=== PATIENT | male | born 1965 | race Caucasian/White ===

== ENCOUNTER 2020-06-19 12:47 | Inpatient (IN) ==
[2020-06-19] MEDS ORDERED: Ketorolac 15 MG/ML VIAL IVP ONE (14:03)
[2020-06-19] MEDS ORDERED: Piperacillin/Tazobactam 3.375 GM in 0.9 % Sodium Chloride Mini Bag 100 ML IVPB STA (14:13)
[2020-06-19 14:36] LABS: Basophils % 0.2 %; Hematocrit 41.6 % (37.5-50.1); Immature Granulocytes % 0.4 % (0-4); Lymphocytes # 0.8 K/mcL (0.6-4.6); Lymphocytes % 6.2 %; Mean Corpuscular HGB Conc 33.7 g/dL (31.6-35.5); Mean Corpuscular Volume 89.1 fL (83.0-100.0); Mean Platelet Volume 10.6 fL (9.4-12.4); Monocytes % 7.6 %; Neutrophils # 11.5 K/mcL (1.6-8.9); Platelet Count 280 K/mcL (140-400); Red Blood Count 4.67 M/mcL (4.19-5.50); Red Cell Distribution Width 12.1 % (11.5-14.5); Segmented Neutrophils % 85.6 %; White Blood Count 13.5 K/mcL (4.3-11.1)
[2020-06-19 15:02] LABS: Alanine Aminotransferase 17 Units/L (7-52); Albumin/Globulin Ratio 1.2 (1.1-2.2); Alkaline Phosphatase 160 Units/L (34-104); Aspartate Amino Transferase 13 Units/L (13-39); BUN/Creatinine Ratio 15 (6-26); Bilirubin,Total 0.5 mg/dL (0.3-1.0); Blood Urea Nitrogen 19 mg/dL (6-20); C-Reactive Protein 78 mg/L (Less than 10); Calcium 9.3 mg/dL (8.6-10.3); Carbon Dioxide 28 mEq/L (23-29); Chloride 89 mEq/L (98-107); Globulin 3.3 g/dL (2.4-3.5); Glucose 719 mg/dL (70-105); Osmolality,Calculated 299 (280-300); Potassium 4.3 mEq/L (3.5-5.1); Sodium 126 mEq/L (136-145); Total Protein 7.3 g/dL (6.4-8.9); eGFR For African Americans > 60 (> 60); eGFR For Non-African Americans 57 (> 60)
[2020-06-19] MEDS ORDERED: Isovue-370 500 ML BOTTLE IVP ONE (15:14)
[2020-06-19] MEDS ORDERED: D5% in Water 1,000 ML IVC PRN (15:18)
[2020-06-19] MEDS ORDERED: *HR* Dextrose 50 % in Water (Vial) 50 ML VIAL IVP PRN (15:18)
[2020-06-19] MEDS ORDERED: Dextrose Gel 15 GM/37.5 ML TUBE PO PRN ×2 (15:18)
[2020-06-19] MEDS ORDERED: Insulin Human Regular 10 UNIT in 0.9 % Sodium Chloride 10 ML IV ONE (15:27)
[2020-06-19 16:18] LABS: INR 0.9; Magnesium 1.8 mg/dL (1.6-2.6); Phosphorous 3.8 mg/dL (2.7-4.5); Prothrombin Time 10.7 Seconds (9.4-12.1)
[2020-06-19] MEDS ORDERED: Ondansetron 4 MG/2 ML VIAL IVP PRN (17:07)
[2020-06-19] MEDS ORDERED: *HR* HYDROcodone/Acet 5/325 mg TABLET PO PRN (17:07)
[2020-06-19] MEDS ORDERED: Acetaminophen 325 MG TABLET PO PRN (17:07)
[2020-06-19] MEDS ORDERED: Naloxone 0.4 MG/ML INJ IVP PRN (17:07)
[2020-06-19 17:42] LABS: Estimated Average Glucose 473 mg/dl; Hemoglobin A1C 18.1 %
[2020-06-19 17:45] LABS: Bilirubin,Urine Negative (Negative); Blood,Urine Negative (Negative); Clarity,Urine Clear (Clear); Color,Urine Colorless (Yellow); Glucose,Urine (UA) >=1000 mg/dL (Normal); Ketones,Urine Negative (Negative); Leukocyte Esterase,Urine Negative (Negative); Nitrite,Urine Negative (Negative); Protein,Urine Negative (Neg-Trace); RBC,Urine 0-3 per hpf (0-3); Specific Gravity,Urine > 1.030 (1.010-1.025); Squamous Epithelial Cell,Urine Few per hpf (None-Few); Urobilinogen,Urine Normal (Normal); WBC,Urine 0-3 per hpf (0-3)
[2020-06-19] MEDS: *HR* Heparin 5,000 UNIT/ML VIAL SQ SCH (18:07)
[2020-06-19] MEDS: Insulin LISPRO 300 UNITS/3 ML VIAL SUBQ SCH (18:13)
[2020-06-19] MEDS: Piperacillin/Tazobactam 3.375 GM in 0.9 % Sodium Chloride Mini Bag 100 ML IVPB SCH (19:39)
[2020-06-20] MEDS: *HR* OxyCODONE Immed Rel 5 MG TABLET PO PRN ×4 (00:07→19:05)
[2020-06-20] MEDS: Insulin LISPRO 300 UNITS/3 ML VIAL SUBQ SCH ×4 (00:07→17:55)
[2020-06-20] MEDS: Piperacillin/Tazobactam 3.375 GM in 0.9 % Sodium Chloride Mini Bag 100 ML IVPB SCH ×3 (03:57→19:09)
[2020-06-20] MEDS: *HR* Heparin 5,000 UNIT/ML VIAL SQ SCH ×2 (05:40→17:51)
[2020-06-20 06:19] LABS: Basophils % 0.2 %; Hematocrit 37.1 % (37.5-50.1); Immature Granulocytes % 0.6 % (0-4); Lymphocytes # 1.5 K/mcL (0.6-4.6); Lymphocytes % 9.6 %; Mean Corpuscular HGB Conc 33.2 g/dL (31.6-35.5); Mean Corpuscular Hemoglobin 29.1 pg (28.0-33.3); Mean Corpuscular Volume 87.7 fL (83.0-100.0); Mean Platelet Volume 10.3 fL (9.4-12.4); Monocytes # 1.6 K/mcL (0.0-1.3); Monocytes % 10.5 %; Platelet Count 262 K/mcL (140-400); Red Blood Count 4.23 M/mcL (4.19-5.50); Red Cell Distribution Width 11.9 % (11.5-14.5); Segmented Neutrophils % 79.1 %; White Blood Count 15.2 K/mcL (4.3-11.1)
[2020-06-20 06:24] LABS: Hemoglobin 12.3 g/dL (12.9-16.9)
[2020-06-20 07:00] LABS: Blood Urea Nitrogen 22 mg/dL (6-20); Carbon Dioxide 29 mEq/L (23-29); Chloride 100 mEq/L (98-107); Potassium 4.1 mEq/L (3.5-5.1); Sodium 135 mEq/L (136-145)
[2020-06-20 07:01] LABS: Alanine Aminotransferase 23 Units/L (7-52); Albumin 3.4 g/dL (3.5-5.7); Albumin/Globulin Ratio 1.3 (1.1-2.2); Alkaline Phosphatase 140 Units/L (34-104); Aspartate Amino Transferase 30 Units/L (13-39); BUN/Creatinine Ratio 20 (6-26); Bilirubin,Total 0.6 mg/dL (0.3-1.0); Calcium 8.9 mg/dL (8.6-10.3); Globulin 2.7 g/dL (2.4-3.5); Glucose 111 mg/dL (70-105); Osmolality,Calculated 284 (280-300); Total Protein 6.1 g/dL (6.4-8.9); eGFR For African Americans > 60 (> 60); eGFR For Non-African Americans > 60 (> 60)
[2020-06-20] MEDS ORDERED: lisinopriL 5 MG TABLET PO SCH (09:00)
[2020-06-20] MEDS ORDERED: Aspirin 81 MG TAB.CHEW PO SCH (09:00)
[2020-06-20] MEDS: carvediloL 6.25 MG TABLET PO SCH ×2 (09:06→17:53)
[2020-06-20] MEDS ORDERED: Lidocaine 1% 0 ML ONE (16:38)
[2020-06-20] MEDS ORDERED: *HR* FentaNYL (PF) 100 MCG/2 ML VIAL ONE (16:56)
[2020-06-20] MEDS ORDERED: Dexamethasone 4 MG/ML VIAL ONE (16:58)
[2020-06-20] MEDS ORDERED: Lidocaine -MPF 2% 2 ML VIAL ONE (16:58)
[2020-06-20] MEDS ORDERED: Ondansetron 4 MG/2 ML VIAL ONE (16:58)
[2020-06-20] MEDS ORDERED: *HR* Propofol 200 MG/20 ML VIAL IVP ONE (16:58)
[2020-06-20] MEDS ORDERED: *HR* Midazolam HCl 2 MG/2 ML VIAL ONE (17:02)
[2020-06-20] MEDS ORDERED: Dextrose Gel 15 GM/37.5 ML TUBE PO PRN ×2 (18:17)
[2020-06-20] MEDS ORDERED: *HR* Dextrose 50 % in Water (Vial) 50 ML VIAL IVP PRN (18:17)
[2020-06-20] MEDS ORDERED: Ondansetron 4 MG/2 ML VIAL IVP PRN (18:17)
[2020-06-20] MEDS ORDERED: Acetaminophen 325 MG TABLET PO PRN (18:17)
[2020-06-20] MEDS ORDERED: D5% in Water 1,000 ML IVC PRN (18:17)
[2020-06-20] MEDS ORDERED: Naloxone 0.4 MG/ML INJ IVP PRN (18:17)
[2020-06-21] MEDS: Insulin LISPRO 300 UNITS/3 ML VIAL SUBQ SCH ×4 (00:24→17:11)
[2020-06-21] MEDS ORDERED: Insulin Human Regular 10 UNIT in 0.9 % Sodium Chloride 10 ML IV ONE (02:09)
[2020-06-21] MEDS: Piperacillin/Tazobactam 3.375 GM in 0.9 % Sodium Chloride Mini Bag 100 ML IVPB SCH ×3 (03:31→20:08)
[2020-06-21] MEDS ORDERED: Insulin DETEMIR 100 UNIT/ML X5UNITS SUBQ ONE (03:39)
[2020-06-21 03:48] LABS: Basophils % 0.1 %; Hematocrit 32.2 % (37.5-50.1); Immature Granulocytes % 0.9 % (0-4); Lymphocytes % 6.3 %; Mean Corpuscular HGB Conc 33.2 g/dL (31.6-35.5); Mean Corpuscular Volume 90.2 fL (83.0-100.0); Mean Platelet Volume 10.7 fL (9.4-12.4); Monocytes # 1.5 K/mcL (0.0-1.3); Monocytes % 9.4 %; Neutrophils # 13.2 K/mcL (1.6-8.9); Platelet Count 278 K/mcL (140-400); Red Blood Count 3.57 M/mcL (4.19-5.50); Red Cell Distribution Width 11.9 % (11.5-14.5); Segmented Neutrophils % 83.3 %; White Blood Count 15.9 K/mcL (4.3-11.1)
[2020-06-21 03:53] LABS: Hemoglobin 10.7 g/dL (12.9-16.9)
[2020-06-21 04:09] LABS: BUN/Creatinine Ratio 21 (6-26); Blood Urea Nitrogen 28 mg/dL (6-20); C-Reactive Protein 112 mg/L (Less than 10); Calcium 8.4 mg/dL (8.6-10.3); Carbon Dioxide 26 mEq/L (23-29); Chloride 99 mEq/L (98-107); Glucose 458 mg/dL (70-105); Osmolality,Calculated 299 (280-300); Phosphorous 3.9 mg/dL (2.7-4.5); Sodium 132 mEq/L (136-145); eGFR For African Americans > 60 (> 60); eGFR For Non-African Americans 56 (> 60)
[2020-06-21] MEDS: *HR* Heparin 5,000 UNIT/ML VIAL SQ SCH ×2 (06:05→17:11)
[2020-06-21] MEDS: carvediloL 6.25 MG TABLET PO SCH ×2 (08:17→17:10)
[2020-06-21] MEDS: lisinopriL 5 MG TABLET PO SCH (08:17)
[2020-06-21] MEDS: Aspirin 81 MG TAB.CHEW PO SCH (08:18)
[2020-06-21] MEDS: Insulin DETEMIR 100 UNIT/ML X5UNITS SUBQ SCH (20:02)
[2020-06-21] MEDS: *HR* OxyCODONE Immed Rel 5 MG TABLET PO PRN (23:18)
[2020-06-22] MEDS: *HR* HYDROcodone/Acet 5/325 mg TABLET PO PRN ×3 (01:47→22:45)
[2020-06-22] MEDS: *HR* Heparin 5,000 UNIT/ML VIAL SQ SCH ×2 (04:01→16:54)
[2020-06-22] MEDS: Piperacillin/Tazobactam 3.375 GM in 0.9 % Sodium Chloride Mini Bag 100 ML IVPB SCH ×2 (04:03→12:15)
[2020-06-22 06:44] LABS: Hematocrit 37.3 % (37.5-50.1); Hemoglobin 12.2 g/dL (12.9-16.9); Mean Corpuscular HGB Conc 32.7 g/dL (31.6-35.5); Mean Corpuscular Hemoglobin 29.3 pg (28.0-33.3); Mean Corpuscular Volume 89.7 fL (83.0-100.0); Mean Platelet Volume 10.7 fL (9.4-12.4); Platelet Count 315 K/mcL (140-400); Red Blood Count 4.16 M/mcL (4.19-5.50); Red Cell Distribution Width 11.9 % (11.5-14.5); White Blood Count 13.9 K/mcL (4.3-11.1)
[2020-06-22] MEDS: Insulin LISPRO 300 UNITS/3 ML VIAL SUBQ SCH ×3 (07:56→16:53)
[2020-06-22] MEDS: lisinopriL 5 MG TABLET PO SCH (08:00)
[2020-06-22] MEDS: carvediloL 6.25 MG TABLET PO SCH ×2 (08:00→16:52)
[2020-06-22] MEDS: Aspirin 81 MG TAB.CHEW PO SCH (08:00)
[2020-06-22] MEDS: Furosemide 40 MG TABLET PO SCH (08:00)
[2020-06-22 09:58] LABS: BUN/Creatinine Ratio 24 (6-26); Blood Urea Nitrogen 22 mg/dL (6-20); Calcium 8.5 mg/dL (8.6-10.3); Carbon Dioxide 25 mEq/L (23-29); Chloride 103 mEq/L (98-107); Glucose 141 mg/dL (70-105); Osmolality,Calculated 286 (280-300); Potassium 4.4 mEq/L (3.5-5.1); Sodium 135 mEq/L (136-145); eGFR For African Americans > 60 (> 60); eGFR For Non-African Americans > 60 (> 60)
[2020-06-22] MEDS: *HR* OxyCODONE Immed Rel 5 MG TABLET PO PRN ×2 (13:08→20:25)
[2020-06-22] MEDS: Insulin DETEMIR 100 UNIT/ML X5UNITS SUBQ SCH (20:24)
[2020-06-23] MEDS: *HR* Heparin 5,000 UNIT/ML VIAL SQ SCH ×2 (05:20→16:41)
[2020-06-23 06:39] LABS: Hematocrit 43.8 % (37.5-50.1); Mean Corpuscular HGB Conc 32.6 g/dL (31.6-35.5); Mean Corpuscular Hemoglobin 29.8 pg (28.0-33.3); Mean Corpuscular Volume 91.3 fL (83.0-100.0); Mean Platelet Volume 10.1 fL (9.4-12.4); Platelet Count 355 K/mcL (140-400); Red Cell Distribution Width 11.9 % (11.5-14.5); White Blood Count 11.6 K/mcL (4.3-11.1)
[2020-06-23 06:40] LABS: Hemoglobin 14.3 g/dL (12.9-16.9)
[2020-06-23 07:00] LABS: BUN/Creatinine Ratio 20 (6-26); Blood Urea Nitrogen 21 mg/dL (6-20); Calcium 9.2 mg/dL (8.6-10.3); Carbon Dioxide 26 mEq/L (23-29); Chloride 101 mEq/L (98-107); Glucose 150 mg/dL (70-105); Osmolality,Calculated 288 (280-300); Potassium 3.9 mEq/L (3.5-5.1); Sodium 136 mEq/L (136-145); eGFR For African Americans > 60 (> 60); eGFR For Non-African Americans > 60 (> 60)
[2020-06-23] MEDS: Insulin LISPRO 300 UNITS/3 ML VIAL SUBQ SCH ×3 (07:24→16:36)
[2020-06-23] MEDS: Aspirin 81 MG TAB.CHEW PO SCH (08:42)
[2020-06-23] MEDS: lisinopriL 5 MG TABLET PO SCH (08:43)
[2020-06-23] MEDS: Furosemide 40 MG TABLET PO SCH (08:43)
[2020-06-23] MEDS: *HR* HYDROcodone/Acet 5/325 mg TABLET PO PRN (08:45)
[2020-06-23] MEDS: carvediloL 6.25 MG TABLET PO SCH ×2 (08:45→16:37)
[2020-06-23] MEDS: *HR* OxyCODONE Immed Rel 5 MG TABLET PO PRN (20:15)
[2020-06-23] MEDS: Insulin DETEMIR 100 UNIT/ML X5UNITS SUBQ SCH (20:16)
[2020-06-24] MEDS: *HR* OxyCODONE Immed Rel 5 MG TABLET PO PRN (02:03)
[2020-06-24] MEDS: *HR* Heparin 5,000 UNIT/ML VIAL SQ SCH (05:27)
[2020-06-24] MEDS: Aspirin 81 MG TAB.CHEW PO SCH (07:53)
[2020-06-24] MEDS: Furosemide 40 MG TABLET PO SCH (07:53)
[2020-06-24] MEDS: lisinopriL 5 MG TABLET PO SCH (07:53)
[2020-06-24] MEDS: Insulin LISPRO 300 UNITS/3 ML VIAL SUBQ SCH ×2 (07:53→11:22)
[2020-06-24] MEDS: carvediloL 6.25 MG TABLET PO SCH (07:53)
[2020-06-24] MEDS: *HR* HYDROcodone/Acet 5/325 mg TABLET PO PRN (07:59)
[2020-06-24 11:00] VITALS: BP 130/66
== END 2020-06-24 14:41 | disposition home or self-care (01) | DRG 623 ==
LOC: EMEROOARM 12:47 → 3BNU 12:47 → SUATTDRO 16:48 → 3BNU 18:00 → SUATTDRO 06-20 08:14
PROVIDERS: ADMIT Internal Medicine; ATTEND Internal Medicine

== ENCOUNTER 2020-08-25 12:23 | Inpatient (IN) ==
[2020-08-25] MEDS ORDERED: *HR* FentaNYL (PF) 100 MCG/2 ML VIAL IVP ONE (14:39)
[2020-08-25 15:11] LABS: Basophils % 0.3 %; Eosinophils % 0.1 %; Hematocrit 40.6 % (37.5-50.1); Hemoglobin 12.5 g/dL (12.9-16.9); Immature Granulocytes % 0.3 % (0-4); Lymphocytes # 1.9 K/mcL (0.6-4.6); Lymphocytes % 15.3 %; Mean Corpuscular HGB Conc 30.8 g/dL (31.6-35.5); Mean Corpuscular Hemoglobin 28.2 pg (28.0-33.3); Mean Corpuscular Volume 91.6 fL (83.0-100.0); Mean Platelet Volume 10.1 fL (9.4-12.4); Monocytes # 0.9 K/mcL (0.0-1.3); Monocytes % 7.7 %; Neutrophils # 9.3 K/mcL (1.6-8.9); Platelet Count 308 K/mcL (140-400); Red Blood Count 4.43 M/mcL (4.19-5.50); Segmented Neutrophils % 76.3 %; White Blood Count 12.1 K/mcL (4.3-11.1)
[2020-08-25 15:31] LABS: Alanine Aminotransferase 31 Units/L (7-52); Albumin/Globulin Ratio 1.2 (1.1-2.2); Alkaline Phosphatase 190 Units/L (34-104); Aspartate Amino Transferase 16 Units/L (13-39); BUN/Creatinine Ratio 20 (6-26); Bilirubin,Total 0.4 mg/dL (0.3-1.0); Blood Urea Nitrogen 19 mg/dL (6-20); C-Reactive Protein 29 mg/L (Less than 10); Calcium 9.2 mg/dL (8.6-10.3); Carbon Dioxide 31 mEq/L (23-29); Chloride 98 mEq/L (98-107); Globulin 3.3 g/dL (2.4-3.5); Glucose 243 mg/dL (70-105); Osmolality,Calculated 296 (280-300); Potassium 3.6 mEq/L (3.5-5.1); Sodium 138 mEq/L (136-145); Total Protein 7.3 g/dL (6.4-8.9); eGFR For African Americans > 60 (> 60); eGFR For Non-African Americans > 60 (> 60)
[2020-08-25] MEDS ORDERED: Piperacillin/Tazobactam 3.375 GM in Water for inj. (sterile) 20 ML IVP ONE (15:54)
[2020-08-25] MEDS ORDERED: 0.9 % Sodium Chloride 1,000 ML IVC ONE (16:06)
[2020-08-25] MEDS ORDERED: D5% in Water 1,000 ML IVC PRN (16:16)
[2020-08-25] MEDS ORDERED: Dextrose Gel 15 GM/37.5 ML TUBE PO PRN ×2 (16:16)
[2020-08-25] MEDS ORDERED: Ondansetron 4 MG/2 ML VIAL IVP PRN (16:22)
[2020-08-25] MEDS ORDERED: Naloxone 0.4 MG/ML INJ IVP PRN (16:22)
[2020-08-25] MEDS: Insulin LISPRO 300 UNITS/3 ML VIAL SUBQ SCH ×2 (17:54→20:28)
[2020-08-25] MEDS: Insulin DETEMIR 100 UNIT/ML X5UNITS SUBQ SCH (20:28)
[2020-08-25] MEDS: Piperacillin/Tazobactam 3.375 GM in 0.9 % Sodium Chloride Mini Bag 100 ML IVPB SCH (23:50)
[2020-08-26 01:32] LABS: Basophils % 0.2 %; Mean Corpuscular HGB Conc 31.4 g/dL (31.6-35.5); Mean Platelet Volume 10.3 fL (9.4-12.4); Monocytes % 8.6 %
[2020-08-26 01:38] LABS: Eosinophils % 0.2 %; Hematocrit 33.8 % (37.5-50.1); Hemoglobin 10.6 g/dL (12.9-16.9); Immature Granulocytes % 0.2 % (0-4); Lymphocytes % 20.5 %; Mean Corpuscular Hemoglobin 28.6 pg (28.0-33.3); Mean Corpuscular Volume 91.1 fL (83.0-100.0); Monocytes # 0.8 K/mcL (0.0-1.3); Neutrophils # 6.8 K/mcL (1.6-8.9); Platelet Count 261 K/mcL (140-400); Red Blood Count 3.71 M/mcL (4.19-5.50); Segmented Neutrophils % 70.3 %; White Blood Count 9.7 K/mcL (4.3-11.1)
[2020-08-26 01:54] LABS: BUN/Creatinine Ratio 22 (6-26); Blood Urea Nitrogen 21 mg/dL (6-20); Calcium 8.1 mg/dL (8.6-10.3); Carbon Dioxide 29 mEq/L (23-29); Chloride 104 mEq/L (98-107); Glucose 173 mg/dL (70-105); Osmolality,Calculated 293 (280-300); Potassium 3.4 mEq/L (3.5-5.1); Sodium 138 mEq/L (136-145); eGFR For African Americans > 60 (> 60); eGFR For Non-African Americans > 60 (> 60)
[2020-08-26] MEDS: *HR* Dextrose 50 % in Water (Vial) 50 ML VIAL IVP PRN ×3 (06:03→12:47)
[2020-08-26] MEDS: Insulin LISPRO 300 UNITS/3 ML VIAL SUBQ SCH ×4 (08:04→19:54)
[2020-08-26] MEDS: Piperacillin/Tazobactam 3.375 GM in 0.9 % Sodium Chloride Mini Bag 100 ML IVPB SCH ×3 (08:25→23:53)
[2020-08-26] MEDS: Aspirin Enteric Coated 81 MG Tablet PO SCH (08:25)
[2020-08-26] MEDS: Insulin DETEMIR 100 UNIT/ML X5UNITS SUBQ SCH (19:54)
[2020-08-26] MEDS ORDERED: Piperacillin/Tazobactam 3.375 GM VIAL ONE (23:03)
[2020-08-27 05:20] LABS: Basophils # 0.1 K/mcL (0.0-0.2); Basophils % 0.5 %; Eosinophils % 0.1 %; Hematocrit 35.7 % (37.5-50.1); Hemoglobin 11.4 g/dL (12.9-16.9); Immature Granulocytes % 0.5 % (0-4); Lymphocytes # 1.5 K/mcL (0.6-4.6); Lymphocytes % 14.5 %; Mean Corpuscular HGB Conc 31.9 g/dL (31.6-35.5); Mean Corpuscular Hemoglobin 28.4 pg (28.0-33.3); Mean Corpuscular Volume 88.8 fL (83.0-100.0); Mean Platelet Volume 9.8 fL (9.4-12.4); Monocytes # 0.8 K/mcL (0.0-1.3); Monocytes % 7.7 %; Neutrophils # 7.9 K/mcL (1.6-8.9); Platelet Count 306 K/mcL (140-400); Red Blood Count 4.02 M/mcL (4.19-5.50); Red Cell Distribution Width 12.9 % (11.5-14.5); Segmented Neutrophils % 76.7 %; White Blood Count 10.3 K/mcL (4.3-11.1)
[2020-08-27 05:38] LABS: BUN/Creatinine Ratio 29 (6-26); Blood Urea Nitrogen 24 mg/dL (6-20); Calcium 8.7 mg/dL (8.6-10.3); Carbon Dioxide 27 mEq/L (23-29); Chloride 105 mEq/L (98-107); Glucose 257 mg/dL (70-105); Osmolality,Calculated 299 (280-300); Potassium 3.8 mEq/L (3.5-5.1); Sodium 138 mEq/L (136-145); Vancomycin,Trough 11 mcg/mL (5-10); eGFR For African Americans > 60 (> 60); eGFR For Non-African Americans > 60 (> 60)
[2020-08-27 08:22] LABS: Estimated Average Glucose 266 mg/dl; Hemoglobin A1C 10.9 %
[2020-08-27] MEDS: carvediloL 25 MG TABLET PO SCH ×2 (08:25→20:06)
[2020-08-27] MEDS: Aspirin Enteric Coated 81 MG Tablet PO SCH (08:25)
[2020-08-27] MEDS: Furosemide 40 MG TABLET PO SCH (08:25)
[2020-08-27] MEDS: lisinopriL 5 MG TABLET PO SCH (08:25)
[2020-08-27] MEDS: Vancomycin 1,500 MG/265 ML IV.SOLN IVPB SCH ×2 (08:25→17:07)
[2020-08-27] MEDS: Piperacillin/Tazobactam 3.375 GM in 0.9 % Sodium Chloride Mini Bag 100 ML IVPB SCH ×3 (08:26→23:46)
[2020-08-27] MEDS: Insulin LISPRO 300 UNITS/3 ML VIAL SUBQ SCH ×4 (08:28→20:10)
[2020-08-27] MEDS ORDERED: Furosemide 40 MG/4 ML VIAL IVP ONE (16:14)
[2020-08-27] MEDS: Insulin DETEMIR 100 UNIT/ML X5UNITS SUBQ SCH (20:07)
[2020-08-28 01:51] LABS: Hematocrit 34.3 % (37.5-50.1); Hemoglobin 10.8 g/dL (12.9-16.9); Mean Corpuscular HGB Conc 31.5 g/dL (31.6-35.5); Mean Corpuscular Hemoglobin 28.3 pg (28.0-33.3); Mean Platelet Volume 10.1 fL (9.4-12.4); Platelet Count 297 K/mcL (140-400); Red Blood Count 3.81 M/mcL (4.19-5.50); Red Cell Distribution Width 12.9 % (11.5-14.5); White Blood Count 9.1 K/mcL (4.3-11.1)
[2020-08-28 02:10] LABS: BUN/Creatinine Ratio 25 (6-26); Blood Urea Nitrogen 26 mg/dL (6-20); Calcium 8.4 mg/dL (8.6-10.3); Carbon Dioxide 27 mEq/L (23-29); Chloride 104 mEq/L (98-107); Glucose 241 mg/dL (70-105); Osmolality,Calculated 301 (280-300); Potassium 3.7 mEq/L (3.5-5.1); Sodium 139 mEq/L (136-145); eGFR For African Americans > 60 (> 60); eGFR For Non-African Americans > 60 (> 60)
[2020-08-28 02:13] LABS: Adenovirus Not Detected (Not Detect); Bordetella Pertussis Not Detected (Not Detect); Chlamydophila pneumoniae Not Detected (Not Detect); Coronavirus 229E Not Detected (Not Detect); Coronavirus HKU1 Not Detected (Not Detect); Coronavirus NL63 Not Detected (Not Detect); Coronavirus OC43 Not Detected (Not Detect); Human Metapneumovirus Not Detected (Not Detect); Human Rhinovirus/Enterovirus Not Detected (Not Detect); Influenza A Subtype 2009 H1 Not Detected (Not Detect); Influenza B Not Detected (Not Detect); Mycoplasma pneumoniae Not Detected (Not Detect); Parainfluenza Virus 1 Not Detected (Not Detect); Parainfluenza Virus 2 Not Detected (Not Detect); Parainfluenza Virus 3 Not Detected (Not Detect); Parainfluenza Virus 4 Not Detected (Not Detect); Respiratory Syncytial Virus Not Detected (Not Detect); SARS-CoV-2 Not Detected (Not Detect)
[2020-08-28] MEDS: Vancomycin 1,500 MG/265 ML IV.SOLN IVPB SCH (05:22)
[2020-08-28] MEDS: Insulin LISPRO 300 UNITS/3 ML VIAL SUBQ SCH ×4 (08:57→20:43)
[2020-08-28] MEDS: Piperacillin/Tazobactam 3.375 GM in 0.9 % Sodium Chloride Mini Bag 100 ML IVPB SCH ×2 (08:57→18:26)
[2020-08-28] MEDS: Aspirin Enteric Coated 81 MG Tablet PO SCH (08:58)
[2020-08-28] MEDS: lisinopriL 5 MG TABLET PO SCH (08:58)
[2020-08-28] MEDS: carvediloL 25 MG TABLET PO SCH ×2 (08:58→20:41)
[2020-08-28] MEDS: Furosemide 40 MG TABLET PO SCH (08:58)
[2020-08-28] MEDS ORDERED: *HR* OxyCODONE/APAP 7.5/325 TABLET PO PRN (11:13)
[2020-08-28] MEDS ORDERED: Lidocaine -MPF 2% 2 ML VIAL ONE (12:48)
[2020-08-28] MEDS ORDERED: *HR* FentaNYL (PF) 100 MCG/2 ML VIAL ONE (13:00)
[2020-08-28] MEDS ORDERED: *HR* HYDROmorphone (PF) 1 MG/ML SYRINGE ONE (14:17)
[2020-08-28] MEDS: *HR* HYDROmorphone PF 0.5 MG/0.5 ML SYRINGE IVP PRN ×2 (14:20→14:25)
[2020-08-28] MEDS ORDERED: *HR* HYDROmorphone PF 0.5 MG/0.5 ML SYRINGE IVP PRN (15:01)
[2020-08-28] MEDS ORDERED: *HR* Dextrose 50 % in Water (Vial) 50 ML VIAL IVP PRN (15:01)
[2020-08-28] MEDS ORDERED: Naloxone 0.4 MG/ML INJ IVP PRN (15:01)
[2020-08-28] MEDS ORDERED: Dextrose Gel 15 GM/37.5 ML TUBE PO PRN ×2 (15:01)
[2020-08-28] MEDS ORDERED: Ondansetron 4 MG/2 ML VIAL IVP PRN (15:01)
[2020-08-28] MEDS ORDERED: D5% in Water 1,000 ML IVC PRN (15:01)
[2020-08-28] MEDS ORDERED: Vancomycin 1,500 MG/265 ML IV.SOLN IVPB SCH (18:00)
[2020-08-28] MEDS: *HR* OxyCODONE/APAP 7.5/325 TABLET PO PRN (18:32)
[2020-08-28] MEDS: Vancomycin 1,250 MG/262.5 ML IV.SOLN IVPB SCH (20:41)
[2020-08-28] MEDS ORDERED: Insulin DETEMIR 100 UNIT/ML X5UNITS SUBQ SCH ×2 (21:00)
[2020-08-28] MEDS ORDERED: Morphine Sulfate 2 MG/ML SYRINGE IVP ONE (21:31)
[2020-08-29] MEDS: Piperacillin/Tazobactam 3.375 GM in 0.9 % Sodium Chloride Mini Bag 100 ML IVPB SCH ×3 (00:48→15:03)
[2020-08-29] MEDS: *HR* OxyCODONE/APAP 7.5/325 TABLET PO PRN ×2 (00:48→10:29)
[2020-08-29 05:51] LABS: Hematocrit 40.2 % (37.5-50.1); Hemoglobin 12.3 g/dL (12.9-16.9); Mean Corpuscular HGB Conc 30.6 g/dL (31.6-35.5); Mean Corpuscular Volume 91.6 fL (83.0-100.0); Mean Platelet Volume 9.7 fL (9.4-12.4); Platelet Count 350 K/mcL (140-400); Red Blood Count 4.39 M/mcL (4.19-5.50); Red Cell Distribution Width 12.9 % (11.5-14.5); White Blood Count 8.4 K/mcL (4.3-11.1)
[2020-08-29 06:29] LABS: Blood Urea Nitrogen 26 mg/dL (6-20); Chloride 104 mEq/L (98-107); Potassium 3.5 mEq/L (3.5-5.1); Sodium 139 mEq/L (136-145)
[2020-08-29 06:30] LABS: BUN/Creatinine Ratio 29 (6-26); Calcium 9.1 mg/dL (8.6-10.3); Carbon Dioxide 27 mEq/L (23-29); Glucose 67 mg/dL (70-105); Osmolality,Calculated 291 (280-300); eGFR For African Americans > 60 (> 60); eGFR For Non-African Americans > 60 (> 60)
[2020-08-29] MEDS: Vancomycin 1,250 MG/262.5 ML IV.SOLN IVPB SCH ×2 (08:37→20:36)
[2020-08-29] MEDS: lisinopriL 5 MG TABLET PO SCH (08:38)
[2020-08-29] MEDS: Insulin LISPRO 300 UNITS/3 ML VIAL SUBQ SCH ×4 (08:39→20:36)
[2020-08-29] MEDS: Furosemide 40 MG TABLET PO SCH (08:39)
[2020-08-29] MEDS: Aspirin Enteric Coated 81 MG Tablet PO SCH (08:39)
[2020-08-29] MEDS: carvediloL 25 MG TABLET PO SCH ×2 (10:32→20:36)
[2020-08-29] MEDS: Gabapentin 100 MG CAPSULE PO SCH ×3 (13:02→20:36)
[2020-08-29] MEDS ORDERED: Insulin DETEMIR 100 UNIT/ML X5UNITS SUBQ SCH (21:00)
[2020-08-30] MEDS: Piperacillin/Tazobactam 3.375 GM in 0.9 % Sodium Chloride Mini Bag 100 ML IVPB SCH ×4 (00:25→23:56)
[2020-08-30 01:45] LABS: Hematocrit 33.4 % (37.5-50.1); Hemoglobin 10.6 g/dL (12.9-16.9); Mean Corpuscular HGB Conc 31.7 g/dL (31.6-35.5); Mean Corpuscular Hemoglobin 28.5 pg (28.0-33.3); Mean Corpuscular Volume 89.8 fL (83.0-100.0); Mean Platelet Volume 10.1 fL (9.4-12.4); Platelet Count 327 K/mcL (140-400); Red Blood Count 3.72 M/mcL (4.19-5.50); Red Cell Distribution Width 12.8 % (11.5-14.5); White Blood Count 9.5 K/mcL (4.3-11.1)
[2020-08-30 02:04] LABS: BUN/Creatinine Ratio 26 (6-26); Blood Urea Nitrogen 29 mg/dL (6-20); Calcium 8.5 mg/dL (8.6-10.3); Carbon Dioxide 26 mEq/L (23-29); Chloride 104 mEq/L (98-107); Glucose 227 mg/dL (70-105); Osmolality,Calculated 301 (280-300); Potassium 3.6 mEq/L (3.5-5.1); Sodium 139 mEq/L (136-145); eGFR For African Americans > 60 (> 60); eGFR For Non-African Americans > 60 (> 60)
[2020-08-30] MEDS: Furosemide 40 MG TABLET PO SCH (08:10)
[2020-08-30] MEDS: Gabapentin 100 MG CAPSULE PO SCH ×3 (08:10→19:52)
[2020-08-30] MEDS: carvediloL 25 MG TABLET PO SCH ×2 (08:10→19:51)
[2020-08-30] MEDS: lisinopriL 5 MG TABLET PO SCH (08:11)
[2020-08-30] MEDS: Insulin LISPRO 300 UNITS/3 ML VIAL SUBQ SCH ×4 (08:11→19:52)
[2020-08-30] MEDS: Aspirin Enteric Coated 81 MG Tablet PO SCH (08:11)
[2020-08-30] MEDS: Vancomycin 1,250 MG/262.5 ML IV.SOLN IVPB SCH ×2 (08:21→19:51)
[2020-08-30] MEDS: *HR* OxyCODONE/APAP 7.5/325 TABLET PO PRN (11:46)
[2020-08-30] MEDS ORDERED: Ipratropium/Albuterol Neb 3 ML IH PRN (18:31)
[2020-08-30] MEDS ORDERED: Furosemide 40 MG/4 ML VIAL IVP ONE (18:31)
[2020-08-30] MEDS ORDERED: Perflutren Lipid Microsphere 1.3 ML in 0.9 % Sodium Chloride 8.7 ML IVP PRN (18:55)
[2020-08-30] MEDS ORDERED: Insulin DETEMIR 100 UNIT/ML X5UNITS SUBQ SCH (21:00)
[2020-08-31 01:07] LABS: Hematocrit 33.6 % (37.5-50.1); Hemoglobin 10.2 g/dL (12.9-16.9); Mean Corpuscular HGB Conc 30.4 g/dL (31.6-35.5); Mean Corpuscular Hemoglobin 27.9 pg (28.0-33.3); Mean Corpuscular Volume 91.8 fL (83.0-100.0); Mean Platelet Volume 9.9 fL (9.4-12.4); Platelet Count 337 K/mcL (140-400); Red Blood Count 3.66 M/mcL (4.19-5.50); Red Cell Distribution Width 12.9 % (11.5-14.5); White Blood Count 11.3 K/mcL (4.3-11.1)
[2020-08-31 01:29] LABS: BUN/Creatinine Ratio 22 (6-26); Blood Urea Nitrogen 26 mg/dL (6-20); Calcium 8.7 mg/dL (8.6-10.3); Carbon Dioxide 29 mEq/L (23-29); Chloride 105 mEq/L (98-107); Glucose 268 mg/dL (70-105); Osmolality,Calculated 302 (280-300); Potassium 3.6 mEq/L (3.5-5.1); Sodium 139 mEq/L (136-145); eGFR For African Americans > 60 (> 60); eGFR For Non-African Americans > 60 (> 60)
[2020-08-31] MEDS: Piperacillin/Tazobactam 3.375 GM in 0.9 % Sodium Chloride Mini Bag 100 ML IVPB SCH ×2 (08:16→15:48)
[2020-08-31] MEDS: lisinopriL 5 MG TABLET PO SCH (08:16)
[2020-08-31] MEDS: Aspirin Enteric Coated 81 MG Tablet PO SCH (08:16)
[2020-08-31] MEDS: Gabapentin 100 MG CAPSULE PO SCH ×3 (08:16→21:11)
[2020-08-31] MEDS: carvediloL 25 MG TABLET PO SCH ×2 (08:16→21:11)
[2020-08-31] MEDS: Insulin LISPRO 300 UNITS/3 ML VIAL SUBQ SCH ×4 (08:18→21:19)
[2020-08-31] MEDS: Vancomycin 1,250 MG/262.5 ML IV.SOLN IVPB SCH (08:36)
[2020-08-31] MEDS ORDERED: Furosemide 40 MG/4 ML VIAL IVP SCH (09:00)
[2020-08-31] MEDS: Furosemide 40 MG/4 ML VIAL IVP SCH (17:50)
[2020-08-31] MEDS: Insulin DETEMIR 100 UNIT/ML X5UNITS SUBQ SCH (21:11)
[2020-09-01] MEDS: Piperacillin/Tazobactam 3.375 GM in 0.9 % Sodium Chloride Mini Bag 100 ML IVPB SCH ×3 (00:46→17:21)
[2020-09-01 03:44] LABS: Hematocrit 33.4 % (37.5-50.1); Hemoglobin 10.5 g/dL (12.9-16.9); Mean Corpuscular HGB Conc 31.4 g/dL (31.6-35.5); Mean Corpuscular Hemoglobin 28.2 pg (28.0-33.3); Mean Corpuscular Volume 89.8 fL (83.0-100.0); Mean Platelet Volume 9.6 fL (9.4-12.4); Platelet Count 356 K/mcL (140-400); Red Blood Count 3.72 M/mcL (4.19-5.50); Red Cell Distribution Width 12.9 % (11.5-14.5); White Blood Count 8.8 K/mcL (4.3-11.1)
[2020-09-01 04:12] LABS: BUN/Creatinine Ratio 25 (6-26); Blood Urea Nitrogen 27 mg/dL (6-20); Calcium 8.7 mg/dL (8.6-10.3); Carbon Dioxide 31 mEq/L (23-29); Chloride 105 mEq/L (98-107); Glucose 112 mg/dL (70-105); Osmolality,Calculated 300 (280-300); Potassium 3.3 mEq/L (3.5-5.1); Sodium 142 mEq/L (136-145); eGFR For African Americans > 60 (> 60); eGFR For Non-African Americans > 60 (> 60)
[2020-09-01] MEDS: Aspirin Enteric Coated 81 MG Tablet PO SCH (08:44)
[2020-09-01] MEDS: Gabapentin 100 MG CAPSULE PO SCH ×3 (08:44→19:44)
[2020-09-01] MEDS: lisinopriL 5 MG TABLET PO SCH (08:45)
[2020-09-01] MEDS: carvediloL 25 MG TABLET PO SCH ×2 (08:45→19:44)
[2020-09-01] MEDS: Furosemide 40 MG/4 ML VIAL IVP SCH (08:45)
[2020-09-01] MEDS: Insulin LISPRO 300 UNITS/3 ML VIAL SUBQ SCH ×4 (09:05→19:45)
[2020-09-01 11:45] LABS: Lactate Dehydrogenase 158 Units/L (140-271); Total Protein 6.1 g/dL (6.4-8.9)
[2020-09-01 12:47] LABS: Magnesium 1.7 mg/dL (1.6-2.6)
[2020-09-01] MEDS: Spironolactone 12.5 MG TABLET PO SCH (14:27)
[2020-09-01 15:45] LABS: RBC,Pleural Fluid < 2000 RBC/mcL
[2020-09-01 16:02] LABS: Glucose,Pleural Fluid 185 mg/dL (No Ref Range); LDH,Pleural Fluid 44 Units/L (No Ref Range); Total Protein,Pleural Fluid < 2.0 g/dL
[2020-09-01 17:45] LABS: Appearance of Pleural Fl Clear (Clear)
[2020-09-01] MEDS: Insulin DETEMIR 100 UNIT/ML X5UNITS SUBQ SCH (19:42)
[2020-09-02] MEDS: Piperacillin/Tazobactam 3.375 GM in 0.9 % Sodium Chloride Mini Bag 100 ML IVPB SCH ×2 (00:24→09:45)
[2020-09-02 07:15] LABS: Hematocrit 33.2 % (37.5-50.1); Hemoglobin 10.5 g/dL (12.9-16.9); Mean Corpuscular HGB Conc 31.6 g/dL (31.6-35.5); Mean Corpuscular Hemoglobin 28.7 pg (28.0-33.3); Mean Corpuscular Volume 90.7 fL (83.0-100.0); Mean Platelet Volume 9.5 fL (9.4-12.4); Platelet Count 381 K/mcL (140-400); Red Blood Count 3.66 M/mcL (4.19-5.50); White Blood Count 7.8 K/mcL (4.3-11.1)
[2020-09-02] MEDS: Insulin LISPRO 300 UNITS/3 ML VIAL SUBQ SCH ×4 (07:35→20:30)
[2020-09-02 08:09] LABS: BUN/Creatinine Ratio 26 (6-26); Blood Urea Nitrogen 30 mg/dL (6-20); Calcium 8.7 mg/dL (8.6-10.3); Carbon Dioxide 34 mEq/L (23-29); Chloride 104 mEq/L (98-107); Glucose 109 mg/dL (70-105); Osmolality,Calculated 301 (280-300); Sodium 142 mEq/L (136-145); eGFR For African Americans > 60 (> 60); eGFR For Non-African Americans > 60 (> 60)
[2020-09-02] MEDS: Aspirin Enteric Coated 81 MG Tablet PO SCH (09:42)
[2020-09-02] MEDS: lisinopriL 5 MG TABLET PO SCH (09:43)
[2020-09-02] MEDS: carvediloL 25 MG TABLET PO SCH ×2 (09:43→20:29)
[2020-09-02] MEDS: Spironolactone 12.5 MG TABLET PO SCH (09:43)
[2020-09-02] MEDS: Gabapentin 100 MG CAPSULE PO SCH ×3 (09:43→20:29)
[2020-09-02] MEDS: Furosemide 40 MG/4 ML VIAL IVP SCH (09:43)
[2020-09-02] MEDS ORDERED: Lidocaine -MPF 1% 5 ML AMPUL INFILT ONE (14:27)
[2020-09-02] MEDS: metroNIDAZOLE 500 MG TABLET PO SCH ×2 (16:22→20:29)
[2020-09-02] MEDS: Insulin DETEMIR 100 UNIT/ML X5UNITS SUBQ SCH (20:28)
[2020-09-03 03:27] LABS: Hematocrit 30.7 % (37.5-50.1); Hemoglobin 9.6 g/dL (12.9-16.9); Mean Corpuscular HGB Conc 31.3 g/dL (31.6-35.5); Mean Corpuscular Hemoglobin 28.1 pg (28.0-33.3); Mean Corpuscular Volume 89.8 fL (83.0-100.0); Mean Platelet Volume 9.3 fL (9.4-12.4); Platelet Count 349 K/mcL (140-400); Red Blood Count 3.42 M/mcL (4.19-5.50); White Blood Count 6.8 K/mcL (4.3-11.1)
[2020-09-03 03:44] LABS: BUN/Creatinine Ratio 30 (6-26); Blood Urea Nitrogen 36 mg/dL (6-20); Calcium 8.4 mg/dL (8.6-10.3); Carbon Dioxide 32 mEq/L (23-29); Chloride 107 mEq/L (98-107); Glucose 124 mg/dL (70-105); Osmolality,Calculated 306 (280-300); Potassium 3.8 mEq/L (3.5-5.1); Sodium 143 mEq/L (136-145); eGFR For African Americans > 60 (> 60); eGFR For Non-African Americans > 60 (> 60)
[2020-09-03] MEDS: Insulin LISPRO 300 UNITS/3 ML VIAL SUBQ SCH ×4 (07:15→20:13)
[2020-09-03] MEDS: Furosemide 40 MG/4 ML VIAL IVP SCH (07:54)
[2020-09-03] MEDS: Spironolactone 12.5 MG TABLET PO SCH (07:54)
[2020-09-03] MEDS: lisinopriL 5 MG TABLET PO SCH (07:54)
[2020-09-03] MEDS: Gabapentin 100 MG CAPSULE PO SCH ×3 (07:55→20:04)
[2020-09-03] MEDS: metroNIDAZOLE 500 MG TABLET PO SCH ×3 (07:55→20:04)
[2020-09-03] MEDS: carvediloL 25 MG TABLET PO SCH ×2 (07:55→20:04)
[2020-09-03] MEDS: Aspirin Enteric Coated 81 MG Tablet PO SCH (07:55)
[2020-09-03] MEDS ORDERED: Furosemide 40 MG TABLET PO SCH (17:00)
[2020-09-03 19:39] VITALS: BP 143/69
[2020-09-03 19:45] LABS: Fluid Source for Cholesterol PLEURAL FLUID
[2020-09-03] MEDS: Insulin DETEMIR 100 UNIT/ML X5UNITS SUBQ SCH (20:13)
[2020-09-04] MEDS ORDERED: lisinopriL 10 MG TABLET PO SCH (09:00)
[2020-09-04 09:46] LABS: Cholesterol,Body Fluid 12 mg/dL
== END 2020-09-03 10:10 | disposition home health service (06) | DRG 853 ==
LOC: 3NENU 12:23 → EMEROOARM 12:23 → SUATTDRO 16:19 → 3NENU 17:08 → SUATTDRO 17:14
PROVIDERS: ADMIT Internal Medicine; ATTEND Internal Medicine

== ENCOUNTER 2021-05-18 14:36 | Inpatient (IN) ==
[2021-05-18 16:16] LABS: BUN/Creatinine Ratio 16 (6-26); Blood Urea Nitrogen 15 mg/dL (6-20); Calcium 8.9 mg/dL (8.6-10.3); Carbon Dioxide 29 mEq/L (23-29); Chloride 100 mEq/L (98-107); Glucose 101 mg/dL (70-105); Osmolality,Calculated 289 (280-300); Potassium 3.5 mEq/L (3.5-5.1); Sodium 139 mEq/L (136-145); eGFR For African Americans > 60 (> 60); eGFR For Non-African Americans > 60 (> 60)
[2021-05-18 16:26] LABS: Basophils % 0.3 %; Eosinophils % 0.3 %; Hematocrit 48.1 % (37.5-50.1); Hemoglobin 15.5 g/dL (12.9-16.9); Immature Granulocytes % 0.3 % (0-4); Lymphocytes # 1.9 K/mcL (0.6-4.6); Lymphocytes % 24.9 %; Mean Corpuscular HGB Conc 32.2 g/dL (31.6-35.5); Mean Corpuscular Hemoglobin 30.5 pg (28.0-33.3); Mean Corpuscular Volume 94.5 fL (83.0-100.0); Mean Platelet Volume 10.5 fL (9.4-12.4); Monocytes # 0.6 K/mcL (0.0-1.3); Platelet Count 189 K/mcL (140-400); Red Blood Count 5.09 M/mcL (4.19-5.50); Red Cell Distribution Width 12.6 % (11.5-14.5); Segmented Neutrophils % 66.2 %; White Blood Count 7.5 K/mcL (4.3-11.1)
[2021-05-18] MEDS ORDERED: 0.9 % Sodium Chloride 1,000 ML IV ONE (17:20)
[2021-05-18 17:47] LABS: Alanine Aminotransferase 17 Units/L (7-52); Albumin 3.7 g/dL (3.5-5.7); Albumin/Globulin Ratio 1.4 (1.1-2.2); Alkaline Phosphatase 125 Units/L (34-104); Aspartate Amino Transferase 10 Units/L (13-39); Bilirubin,Total 0.4 mg/dL (0.3-1.0); Globulin 2.7 g/dL (2.4-3.5); Magnesium 1.6 mg/dL (1.6-2.6); Total Protein 6.4 g/dL (6.4-8.9)
[2021-05-18 18:16] LABS: VBG HCO3 28 mEq/L (21-27); VBG PCO2 45 mmHg (41-51); VBG PH 7.41 pH Units (7.32-7.42); VBG PO2 181 mmHg (25-50)
[2021-05-18] MEDS ORDERED: *HR* Dextrose 50 % in Water (Syg) 50 ML SYRINGE ONE (20:32)
[2021-05-18] MEDS: *HR* Dextrose 50 % in Water (Vial) 50 ML VIAL IVP ONE ×2 (20:34→20:36)
[2021-05-18 21:05] LABS: Bilirubin,Urine Negative (Negative); Blood,Urine Trace (Negative); Clarity,Urine Clear (Clear); Color,Urine Yellow (Yellow); Glucose,Urine (UA) >=1000 mg/dL (Normal); Hyaline Casts,Urine Moderate per lpf (None Seen); Ketones,Urine Negative (Negative); Leukocyte Esterase,Urine Negative (Negative); Mucus,Urine Few per lpf (None-Few); Nitrite,Urine Negative (Negative); PH,Urine 5.5 pH Units (5.0-8.0); Protein,Urine 200 mg/dL (Neg-Trace); RBC,Urine 0-3 per hpf (0-3); Specific Gravity,Urine 1.022 (1.010-1.025); Squamous Epithelial Cell,Urine Few per hpf (None-Few); Urobilinogen,Urine Normal (Normal); WBC,Urine 0-3 per hpf (0-3)
[2021-05-18] MEDS ORDERED: Isovue-370 500 ML BOTTLE IVP ONE (22:56)
[2021-05-18 23:40] LABS: Influenza A PCR Negative (Negative); Influenza B PCR Negative (Negative); Resp. Syncytial Virus PCR Negative (Negative)
[2021-05-18 23:41] LABS: SARS-CoV-2 by PCR (In House) Negative (Negative)
[2021-05-19] MEDS ORDERED: Ondansetron 4 MG/2 ML VIAL IVP PRN (02:32)
[2021-05-19] MEDS ORDERED: Naloxone 0.4 MG/ML INJ IVP PRN (02:32)
[2021-05-19] MEDS ORDERED: Ipratropium/Albuterol Neb 3 ML IH PRN (02:34)
[2021-05-19] MEDS ORDERED: *HR* Dextrose 50 % in Water (Syg) 50 ML SYRINGE IVP PRN (02:36)
[2021-05-19] MEDS ORDERED: D5% in Water 1,000 ML IVC PRN (02:36)
[2021-05-19] MEDS ORDERED: Dextrose Gel 15 GM/37.5 ML TUBE PO PRN ×2 (02:36)
[2021-05-19] MEDS ORDERED: Perflutren Lipid Microsphere 1.3 ML in 0.9 % Sodium Chloride 8.7 ML IVP PRN (02:37)
[2021-05-19 04:40] LABS: Basophils % 0.2 %; Eosinophils % 0.1 %; Hematocrit 41.6 % (37.5-50.1); Immature Granulocytes % 0.5 % (0-4); Lymphocytes # 1.4 K/mcL (0.6-4.6); Mean Corpuscular HGB Conc 32.5 g/dL (31.6-35.5); Mean Corpuscular Hemoglobin 30.1 pg (28.0-33.3); Mean Corpuscular Volume 92.9 fL (83.0-100.0); Mean Platelet Volume 10.6 fL (9.4-12.4); Monocytes # 0.6 K/mcL (0.0-1.3); Neutrophils # 6.3 K/mcL (1.6-8.9); Platelet Count 231 K/mcL (140-400); Red Blood Count 4.48 M/mcL (4.19-5.50); Red Cell Distribution Width 12.6 % (11.5-14.5); Segmented Neutrophils % 75.2 %; White Blood Count 8.4 K/mcL (4.3-11.1)
[2021-05-19 04:42] LABS: Hemoglobin 13.5 g/dL (12.9-16.9)
[2021-05-19 05:01] LABS: Chol/HDL Ratio 4.2 (0-4.9)
[2021-05-19 05:04] LABS: BUN/Creatinine Ratio 20 (6-26); Blood Urea Nitrogen 15 mg/dL (6-20); Calcium 8.4 mg/dL (8.6-10.3); Carbon Dioxide 29 mEq/L (23-29); Chloride 104 mEq/L (98-107); Glucose 96 mg/dL (70-105); Magnesium 1.4 mg/dL (1.6-2.6); Osmolality,Calculated 287 (280-300); Potassium 3.4 mEq/L (3.5-5.1); Sodium 138 mEq/L (136-145); eGFR For African Americans > 60 (> 60); eGFR For Non-African Americans > 60 (> 60)
[2021-05-19 05:05] LABS: Troponin I < 0.03 ng/mL (< 0.04)
[2021-05-19 05:19] LABS: Thyroid Stimulating Hormone 0.519 mcIU/mL (0.340-5.600)
[2021-05-19 05:27] LABS: Folate 13.9 ng/mL (3.0-16.0)
[2021-05-19 06:23] LABS: Estimated Average Glucose 372 mg/dl; Hemoglobin A1C 14.6 %
[2021-05-19] MEDS: Insulin LISPRO 300 UNITS/3 ML VIAL SUBQ SCH ×3 (08:18→17:15)
[2021-05-19] MEDS: Aspirin 81 MG TAB.CHEW PO SCH (14:52)
[2021-05-20 01:36] LABS: Hematocrit 39.1 % (37.5-50.1); Hemoglobin 12.4 g/dL (12.9-16.9); Mean Corpuscular HGB Conc 31.7 g/dL (31.6-35.5); Mean Corpuscular Hemoglobin 29.8 pg (28.0-33.3); Platelet Count 210 K/mcL (140-400); Red Blood Count 4.16 M/mcL (4.19-5.50); Red Cell Distribution Width 12.8 % (11.5-14.5); White Blood Count 8.3 K/mcL (4.3-11.1)
[2021-05-20 01:52] LABS: BUN/Creatinine Ratio 25 (6-26); Blood Urea Nitrogen 23 mg/dL (6-20); Carbon Dioxide 26 mEq/L (23-29); Chloride 102 mEq/L (98-107); Glucose 224 mg/dL (70-105); Osmolality,Calculated 291 (280-300); Potassium 4.1 mEq/L (3.5-5.1); Sodium 135 mEq/L (136-145); eGFR For African Americans > 60 (> 60); eGFR For Non-African Americans > 60 (> 60)
[2021-05-20] MEDS: Acetaminophen 325 MG TABLET PO PRN ×2 (05:45→22:04)
[2021-05-20] MEDS: Aspirin 81 MG TAB.CHEW PO SCH (07:40)
[2021-05-20] MEDS: Insulin LISPRO 300 UNITS/3 ML VIAL SUBQ SCH ×3 (07:49→16:47)
[2021-05-20 13:41] LABS: Amphetamine Screen,Urine Negative ng/mL (Cutoff=1000); Barbiturate Screen,Urine Negative ng/mL (Cutoff=200); Benzodiazepines Screen,Urine Negative ng/mL (Cutoff=200); Cannabinoid Screen,Urine Negative ng/mL (Cutoff = 50); Cocaine Screen,Urine Negative ng/mL (Cutoff= 300); Opiate Screen,Urine Negative ng/mL (Cutoff=300); Phencyclidine Screen,Urine Negative ng/mL (Cutoff=25)
[2021-05-20 15:44] LABS: Protein/Creatinine Ratio,Urine 0.97 mg/mg (0.00-0.20)
[2021-05-20] MEDS: carvediloL 6.25 MG TABLET PO SCH (16:54)
[2021-05-20] MEDS ORDERED: Dexamethasone Sodium Phos/PF 10 MG/ML VIAL IVP ONE ×2 (17:01→17:03)
[2021-05-20] MEDS ORDERED: *HR* Heparin 5,000 UNIT/ML VIAL SQ SCH (18:00)
[2021-05-21 02:25] LABS: Hematocrit 42.3 % (37.5-50.1); Hemoglobin 13.5 g/dL (12.9-16.9); Mean Corpuscular HGB Conc 31.9 g/dL (31.6-35.5); Mean Corpuscular Hemoglobin 29.5 pg (28.0-33.3); Mean Corpuscular Volume 92.6 fL (83.0-100.0); Platelet Count 221 K/mcL (140-400); Red Blood Count 4.57 M/mcL (4.19-5.50); Red Cell Distribution Width 12.6 % (11.5-14.5); White Blood Count 7.4 K/mcL (4.3-11.1)
[2021-05-21] MEDS: Aspirin 81 MG TAB.CHEW PO SCH (08:04)
[2021-05-21] MEDS: carvediloL 6.25 MG TABLET PO SCH (08:04)
[2021-05-21 08:06] LABS: BUN/Creatinine Ratio 34 (6-26); Blood Urea Nitrogen 34 mg/dL (6-20); Calcium 8.8 mg/dL (8.6-10.3); Carbon Dioxide 24 mEq/L (23-29); Chloride 100 mEq/L (98-107); Glucose 352 mg/dL (70-105); Osmolality,Calculated 296 (280-300); Potassium 5.1 mEq/L (3.5-5.1); Sodium 132 mEq/L (136-145); eGFR For African Americans > 60 (> 60); eGFR For Non-African Americans > 60 (> 60)
[2021-05-21] MEDS: Insulin LISPRO 300 UNITS/3 ML VIAL SUBQ SCH ×2 (08:08→11:36)
[2021-05-21] MEDS: Acetaminophen 325 MG TABLET PO PRN (09:40)
[2021-05-21 11:32] VITALS: BP 115/75; PULSE 91; TEMP 97.9; O2SAT 91
== END 2021-05-21 15:02 | disposition home health service (06) | DRG 65 ==
LOC: 2NENU 14:36 → EMEROOARM 14:36 → SUATTDRO 05-19 02:13 → 2NENU 05-19 02:35
PROVIDERS: ADMIT Internal Medicine; ATTEND Internal Medicine

== ENCOUNTER 2021-06-18 06:30 | Inpatient (IN) ==
[2021-06-18] MEDS ORDERED: Bupivacaine-MPF 0.25% 10 ML VIAL ONE (06:59)
[2021-06-18] MEDS ORDERED: Heparin 1,000 UNITS/500 mL 1,000 ML ONE (06:59)
[2021-06-18] MEDS ORDERED: Vancomycin 1,000 MG VIAL ONE (06:59)
[2021-06-18] MEDS ORDERED: Lidocaine HCL 4 ML Topical Solution (Laryng-O-Jet Kit Sterile Pak) TP ONE (06:59)
[2021-06-18] MEDS ORDERED: Protamine Sulfate 50 MG/5 ML VIAL IVP ONE (06:59)
[2021-06-18] MEDS ORDERED: *HR* Midazolam HCl 2 MG/2 ML VIAL ONE (07:01)
[2021-06-18] MEDS ORDERED: *HR* FentaNYL (PF) 100 MCG/2 ML VIAL ONE (07:01)
[2021-06-18] MEDS ORDERED: *HR* Propofol 200 MG/20 ML VIAL IVP ONE (07:01)
[2021-06-18] MEDS ORDERED: Ondansetron 4 MG/2 ML VIAL ONE (07:03)
[2021-06-18] MEDS ORDERED: Lidocaine -MPF 2% 5 ML VIAL ONE (07:03)
[2021-06-18] MEDS ORDERED: *HR* Rocuronium Bromide 50 MG/5 ML VIAL ONE (07:03)
[2021-06-18] MEDS ORDERED: *HR* Phenylephrine 10 MG/ML VIAL ONE (07:04)
[2021-06-18] MEDS ORDERED: Heparin 1,000 UNITS/500 mL 500 ML ONE (07:07)
[2021-06-18] MEDS ORDERED: CeFAZolin Syr 2,000MG/20 ML 2,000 MG/20 ML SYRINGE IVPB ONE (07:09)
[2021-06-18] MEDS ORDERED: Acetaminophen IV 1,000 MG/100 ML BAG IVPB ONE (07:10)
[2021-06-18] MEDS ORDERED: *HR* Heparin 5,000 UNIT/ML VIAL ONE (07:10)
[2021-06-18] MEDS ORDERED: Ringers Solution, Lactated 1,000 ML IVC SCH (07:15)
[2021-06-18] MEDS ORDERED: *HR* Etomidate 40 MG/20 ML VIAL IVP ONE (07:17)
[2021-06-18] MEDS ORDERED: Ondansetron 4 MG/2 ML VIAL IVP PRN ×2 (07:21→13:12)
[2021-06-18] MEDS ORDERED: NiCARdipine 2.5 MG/10 ML Syringe IVPB ONE (07:21)
[2021-06-18] MEDS ORDERED: *HR* Vasopressin 20 UNIT/ML VIAL ONE (07:21)
[2021-06-18] MEDS ORDERED: *HR* FentaNYL (PF) 100 MCG/2 ML VIAL IVP PRN (07:21)
[2021-06-18] MEDS ORDERED: Albuterol 2.5 MG/3 ML NEBULIZER IH PRN (07:21)
[2021-06-18] MEDS ORDERED: *HR* Dextrose 50 % in Water (Vial) 50 ML VIAL ONE (07:38)
[2021-06-18] MEDS ORDERED: Vancomycin 1,000 MG, Sodium Chloride IRRigation 1,000 ML IR ONE (07:45)
[2021-06-18 08:26] LABS: ABG Base Excess 3 mEq/L (-2 to 3); ABG Chloride 106 mEq/L (98-107); ABG Glucose 82 mg/dL (60-95); ABG HCO3 27 mEq/L (21-27); ABG Ionized Calcium 1.23 mmol/L (1.15-1.35); ABG Oxygen Saturation 97 % (95-98); ABG PCO2 40 mmHg (35-45); ABG PH 7.44 pH Units (7.32-7.45); ABG PO2 92 mmHg (85-104); ABG TCO2 28 mEq/L (20-26)
[2021-06-18] MEDS ORDERED: Naloxone 0.4 MG/ML INJ IVP PRN (13:12)
[2021-06-18] MEDS ORDERED: *HR* Labetalol 20 MG/4 ML SYRINGE IVP PRN (13:12)
[2021-06-18] MEDS ORDERED: Dextrose Gel 15 GM/37.5 ML TUBE PO PRN ×2 (13:12)
[2021-06-18] MEDS ORDERED: *HR* OxyCODONE Immed Rel 5 MG TABLET PO PRN (13:12)
[2021-06-18] MEDS ORDERED: D5% in Water 1,000 ML IVC PRN (13:12)
[2021-06-18] MEDS ORDERED: Acetaminophen 325 MG TABLET PO PRN (13:12)
[2021-06-18] MEDS ORDERED: *HR* HYDROcodone/Acet 5/325 mg TABLET PO PRN (13:12)
[2021-06-18] MEDS ORDERED: *HR* Dextrose 50 % in Water (Syg) 50 ML SYRINGE IVP PRN (13:12)
[2021-06-18] MEDS ORDERED: Insulin LISPRO 300 UNITS/3 ML VIAL SUBQ SCH ×2 (16:30→21:00)
[2021-06-18] MEDS: *HR* Metoprolol 5 MG/5 ML VIAL IVP SCH (17:16)
[2021-06-18] MEDS: CeFAZolin 2 GM/120 ML BAG IVPB SCH (17:16)
[2021-06-18] MEDS: Gabapentin 100 MG CAPSULE PO SCH ×2 (17:16→19:56)
[2021-06-18] MEDS ORDERED: Furosemide 40 MG TABLET PO SCH (21:00)
[2021-06-19] MEDS: *HR* Metoprolol 5 MG/5 ML VIAL IVP SCH ×2 (00:30→05:23)
[2021-06-19] MEDS: CeFAZolin 2 GM/120 ML BAG IVPB SCH (00:38)
[2021-06-19 03:22] VITALS: BP 95/73; PULSE 87; TEMP 98.1
[2021-06-19] MEDS ORDERED: *HR* Heparin 5,000 UNIT/ML VIAL SQ SCH ×2 (06:00)
[2021-06-19 07:41] VITALS: O2SAT 95
[2021-06-19] MEDS ORDERED: PO PO SCH (09:00)
[2021-06-19] MEDS ORDERED: Aspirin Enteric Coated 81 MG Tablet PO SCH (09:00)
[2021-06-19] MEDS ORDERED: carvediloL 6.25 MG TABLET PO SCH (09:00)
== END 2021-06-19 08:52 | disposition home or self-care (01) | DRG 38 ==
LOC: SAMDAY 06:30 → 2NNU 13:01
PROVIDERS: ADMIT Surgery; ATTEND Surgery

== ENCOUNTER 2021-07-02 20:27 | Inpatient (IN) ==
[2021-07-02 23:14] LABS: Basophils % 0.3 %; Eosinophils % 0.2 %; Hemoglobin 11.5 g/dL (12.9-16.9); Immature Granulocytes % 0.5 % (0-4); Lymphocytes # 1.3 K/mcL (0.6-4.6); Mean Corpuscular HGB Conc 31.9 g/dL (31.6-35.5); Mean Corpuscular Volume 90.7 fL (83.0-100.0); Mean Platelet Volume 10.2 fL (9.4-12.4); Monocytes # 0.7 K/mcL (0.0-1.3); Monocytes % 8.5 %; Neutrophils # 6.5 K/mcL (1.6-8.9); Platelet Count 354 K/mcL (140-400); Red Blood Count 3.97 M/mcL (4.19-5.50); Red Cell Distribution Width 13.2 % (11.5-14.5); Segmented Neutrophils % 75.5 %; White Blood Count 8.6 K/mcL (4.3-11.1)
[2021-07-02 23:41] LABS: Alanine Aminotransferase 22 Units/L (7-52); Albumin 3.3 g/dL (3.5-5.7); Albumin/Globulin Ratio 1.2 (1.1-2.2); Alkaline Phosphatase 182 Units/L (34-104); Aspartate Amino Transferase 15 Units/L (13-39); BUN/Creatinine Ratio 24 (6-26); Bilirubin,Total 0.3 mg/dL (0.3-1.0); Blood Urea Nitrogen 24 mg/dL (6-20); Calcium 8.9 mg/dL (8.6-10.3); Carbon Dioxide 28 mEq/L (23-29); Chloride 101 mEq/L (98-107); Globulin 2.8 g/dL (2.4-3.5); Glucose 306 mg/dL (70-105); Osmolality,Calculated 298 (280-300); Potassium 4.6 mEq/L (3.5-5.1); Sodium 136 mEq/L (136-145); Total Protein 6.1 g/dL (6.4-8.9); Troponin I < 0.03 ng/mL (< 0.04); eGFR For African Americans > 60 (> 60); eGFR For Non-African Americans > 60 (> 60)
[2021-07-02] MEDS ORDERED: Furosemide 40 MG/4 ML VIAL IVP ONE (23:56)
[2021-07-03] MEDS ORDERED: Naloxone 0.4 MG/ML INJ IVP PRN (00:46)
[2021-07-03] MEDS ORDERED: Melatonin 3 MG TABLET PO PRN (00:58)
[2021-07-03] MEDS ORDERED: *HR* HYDROcodone/Acet 5/325 mg TABLET PO PRN (00:58)
[2021-07-03] MEDS ORDERED: *HR* OxyCODONE Immed Rel 5 MG TABLET PO PRN (00:58)
[2021-07-03] MEDS ORDERED: Acetaminophen 325 MG TABLET PO PRN (00:58)
[2021-07-03] MEDS ORDERED: Ondansetron ODT 4 MG TAB.RAPDIS SL PRN (00:58)
[2021-07-03] MEDS ORDERED: Dextrose 4 GM Chewable Tablets PO PRN ×2 (01:29)
[2021-07-03] MEDS ORDERED: *HR* Dextrose 50 % in Water (Syg) 50 ML SYRINGE IVP PRN (01:29)
[2021-07-03] MEDS ORDERED: D5% in Water 1,000 ML IVC PRN (01:29)
[2021-07-03 05:43] LABS: Hematocrit 37.6 % (37.5-50.1); Mean Corpuscular HGB Conc 31.9 g/dL (31.6-35.5); Mean Corpuscular Hemoglobin 28.7 pg (28.0-33.3); Mean Platelet Volume 10.5 fL (9.4-12.4); Platelet Count 250 K/mcL (140-400); Red Blood Count 4.18 M/mcL (4.19-5.50); Red Cell Distribution Width 13.2 % (11.5-14.5); White Blood Count 7.7 K/mcL (4.3-11.1)
[2021-07-03 06:04] LABS: BUN/Creatinine Ratio 27 (6-26); Blood Urea Nitrogen 24 mg/dL (6-20); Calcium 8.4 mg/dL (8.6-10.3); Carbon Dioxide 28 mEq/L (23-29); Chloride 103 mEq/L (98-107); Chol/HDL Ratio 3.3 (0-4.9); Cholesterol 118 mg/dL (< 200); Glucose 263 mg/dL (70-105); HDL Cholesterol 36 mg/dL (40-59); LDL Cholesterol,Calculated 65 mg/dL (< 100); Magnesium 1.7 mg/dL (1.6-2.6); Osmolality,Calculated 295 (280-300); Potassium 4.4 mEq/L (3.5-5.1); Sodium 136 mEq/L (136-145); Triglycerides 83 mg/dL (< 150); eGFR For African Americans > 60 (> 60); eGFR For Non-African Americans > 60 (> 60)
[2021-07-03] MEDS: lisinopriL 10 MG TABLET PO SCH (08:06)
[2021-07-03] MEDS: carvediloL 6.25 MG TABLET PO SCH ×2 (08:06→16:57)
[2021-07-03] MEDS: levETIRAcetam 250 MG TABLET PO SCH ×2 (08:06→21:11)
[2021-07-03] MEDS: Aspirin Enteric Coated 81 MG Tablet PO SCH (08:06)
[2021-07-03] MEDS: Insulin LISPRO 300 UNITS/3 ML VIAL SUBQ SCH ×4 (08:07→20:31)
[2021-07-03] MEDS: Furosemide 40 MG/4 ML VIAL IVP SCH ×2 (08:07→16:57)
[2021-07-04] MEDS: Insulin LISPRO 300 UNITS/3 ML VIAL SUBQ SCH ×4 (07:54→22:59)
[2021-07-04] MEDS: levETIRAcetam 250 MG TABLET PO SCH ×2 (07:55→23:03)
[2021-07-04] MEDS: Aspirin Enteric Coated 81 MG Tablet PO SCH (07:55)
[2021-07-04] MEDS: Furosemide 40 MG/4 ML VIAL IVP SCH ×2 (07:55→17:35)
[2021-07-04] MEDS: lisinopriL 10 MG TABLET PO SCH (07:56)
[2021-07-04] MEDS: carvediloL 6.25 MG TABLET PO SCH ×2 (07:56→17:34)
[2021-07-04 11:30] LABS: Basophils % 0.3 %; Eosinophils % 0.2 %; Hematocrit 35.8 % (37.5-50.1); Hemoglobin 11.2 g/dL (12.9-16.9); Immature Granulocytes % 0.5 % (0-4); Lymphocytes % 15.7 %; Mean Corpuscular HGB Conc 31.3 g/dL (31.6-35.5); Mean Corpuscular Hemoglobin 28.5 pg (28.0-33.3); Mean Corpuscular Volume 91.1 fL (83.0-100.0); Mean Platelet Volume 10.1 fL (9.4-12.4); Monocytes # 0.6 K/mcL (0.0-1.3); Monocytes % 8.3 %; Platelet Count 280 K/mcL (140-400); Red Blood Count 3.93 M/mcL (4.19-5.50); Red Cell Distribution Width 13.2 % (11.5-14.5); White Blood Count 6.6 K/mcL (4.3-11.1)
[2021-07-04 11:39] LABS: BUN/Creatinine Ratio 28 (6-26); Blood Urea Nitrogen 28 mg/dL (6-20); Carbon Dioxide 23 mEq/L (23-29); Chloride 102 mEq/L (98-107); Glucose 285 mg/dL (70-105); Magnesium 1.9 mg/dL (1.6-2.6); Osmolality,Calculated 294 (280-300); Potassium 4.5 mEq/L (3.5-5.1); Sodium 134 mEq/L (136-145); eGFR For African Americans > 60 (> 60); eGFR For Non-African Americans > 60 (> 60)
[2021-07-05 04:19] LABS: Basophils % 0.4 %; Eosinophils % 0.1 %; Hematocrit 33.4 % (37.5-50.1); Hemoglobin 10.5 g/dL (12.9-16.9); Immature Granulocytes % 0.3 % (0-4); Lymphocytes # 1.3 K/mcL (0.6-4.6); Lymphocytes % 17.3 %; Mean Corpuscular HGB Conc 31.4 g/dL (31.6-35.5); Mean Corpuscular Hemoglobin 28.9 pg (28.0-33.3); Mean Platelet Volume 9.9 fL (9.4-12.4); Monocytes # 0.7 K/mcL (0.0-1.3); Monocytes % 9.9 %; Neutrophils # 5.3 K/mcL (1.6-8.9); Platelet Count 307 K/mcL (140-400); Red Blood Count 3.63 M/mcL (4.19-5.50); Red Cell Distribution Width 13.3 % (11.5-14.5); White Blood Count 7.3 K/mcL (4.3-11.1)
[2021-07-05 04:42] LABS: BUN/Creatinine Ratio 31 (6-26); Blood Urea Nitrogen 30 mg/dL (6-20); Calcium 8.3 mg/dL (8.6-10.3); Carbon Dioxide 32 mEq/L (23-29); Chloride 102 mEq/L (98-107); Glucose 203 mg/dL (70-105); Magnesium 1.7 mg/dL (1.6-2.6); Osmolality,Calculated 300 (280-300); Potassium 4.4 mEq/L (3.5-5.1); Sodium 139 mEq/L (136-145); eGFR For African Americans > 60 (> 60); eGFR For Non-African Americans > 60 (> 60)
[2021-07-05] MEDS: Furosemide 40 MG/4 ML VIAL IVP SCH ×2 (08:07→17:16)
[2021-07-05] MEDS: Aspirin Enteric Coated 81 MG Tablet PO SCH (08:07)
[2021-07-05] MEDS: levETIRAcetam 250 MG TABLET PO SCH ×2 (08:07→20:36)
[2021-07-05] MEDS: carvediloL 6.25 MG TABLET PO SCH ×2 (08:08→17:16)
[2021-07-05] MEDS: lisinopriL 10 MG TABLET PO SCH (08:08)
[2021-07-05] MEDS: Insulin LISPRO 300 UNITS/3 ML VIAL SUBQ SCH ×4 (08:09→20:42)
[2021-07-06 03:59] LABS: BUN/Creatinine Ratio 32 (6-26); Blood Urea Nitrogen 35 mg/dL (6-20); Calcium 8.2 mg/dL (8.6-10.3); Carbon Dioxide 32 mEq/L (23-29); Chloride 102 mEq/L (98-107); Glucose 411 mg/dL (70-105); Magnesium 1.6 mg/dL (1.6-2.6); Osmolality,Calculated 311 (280-300); Sodium 138 mEq/L (136-145); eGFR For African Americans > 60 (> 60); eGFR For Non-African Americans > 60 (> 60)
[2021-07-06] MEDS: Insulin LISPRO 300 UNITS/3 ML VIAL SUBQ SCH ×4 (08:40→20:56)
[2021-07-06] MEDS: Aspirin Enteric Coated 81 MG Tablet PO SCH (08:41)
[2021-07-06] MEDS: carvediloL 6.25 MG TABLET PO SCH ×2 (08:41→17:10)
[2021-07-06] MEDS: lisinopriL 10 MG TABLET PO SCH (08:41)
[2021-07-06] MEDS: Furosemide 40 MG/4 ML VIAL IVP SCH (08:43)
[2021-07-06] MEDS: levETIRAcetam 250 MG TABLET PO SCH ×2 (08:43→20:55)
[2021-07-06] MEDS: Magnesium Oxide 400 MG TABLET PO SCH (09:28)
[2021-07-06] MEDS: Insulin DETEMIR 100 UNIT/ML X5UNITS SUBQ SCH (12:58)
[2021-07-07 04:09] LABS: BUN/Creatinine Ratio 33 (6-26); Blood Urea Nitrogen 32 mg/dL (6-20); Carbon Dioxide 30 mEq/L (23-29); Chloride 104 mEq/L (98-107); Glucose 122 mg/dL (70-105); Osmolality,Calculated 298 (280-300); Potassium 3.8 mEq/L (3.5-5.1); Sodium 140 mEq/L (136-145); eGFR For African Americans > 60 (> 60); eGFR For Non-African Americans > 60 (> 60)
[2021-07-07] MEDS: Aspirin Enteric Coated 81 MG Tablet PO SCH (08:15)
[2021-07-07] MEDS: Magnesium Oxide 400 MG TABLET PO SCH (08:16)
[2021-07-07] MEDS: carvediloL 6.25 MG TABLET PO SCH ×2 (08:16→17:05)
[2021-07-07] MEDS: Furosemide 40 MG/4 ML VIAL IVP SCH ×2 (08:16→21:09)
[2021-07-07] MEDS: lisinopriL 10 MG TABLET PO SCH (08:16)
[2021-07-07] MEDS: levETIRAcetam 250 MG TABLET PO SCH ×2 (08:16→21:08)
[2021-07-07] MEDS: Insulin LISPRO 300 UNITS/3 ML VIAL SUBQ SCH ×4 (08:17→21:08)
[2021-07-07] MEDS: Insulin DETEMIR 100 UNIT/ML X5UNITS SUBQ SCH (08:17)
[2021-07-07] MEDS ORDERED: Furosemide 40 MG/4 ML VIAL IVP SCH (09:00)
[2021-07-08 03:10] LABS: BUN/Creatinine Ratio 35 (6-26); Blood Urea Nitrogen 35 mg/dL (6-20); Calcium 7.9 mg/dL (8.6-10.3); Carbon Dioxide 31 mEq/L (23-29); Chloride 104 mEq/L (98-107); Glucose 316 mg/dL (70-105); Osmolality,Calculated 306 (280-300); Sodium 138 mEq/L (136-145); eGFR For African Americans > 60 (> 60); eGFR For Non-African Americans > 60 (> 60)
[2021-07-08] MEDS: levETIRAcetam 250 MG TABLET PO SCH ×2 (07:52→21:52)
[2021-07-08] MEDS: lisinopriL 10 MG TABLET PO SCH (07:52)
[2021-07-08] MEDS: carvediloL 6.25 MG TABLET PO SCH ×2 (07:52→16:12)
[2021-07-08] MEDS: Magnesium Oxide 400 MG TABLET PO SCH (07:52)
[2021-07-08] MEDS: Aspirin Enteric Coated 81 MG Tablet PO SCH (07:52)
[2021-07-08] MEDS: Furosemide 40 MG/4 ML VIAL IVP SCH ×3 (07:53→21:56)
[2021-07-08] MEDS: Insulin LISPRO 300 UNITS/3 ML VIAL SUBQ SCH ×4 (07:54→21:56)
[2021-07-08] MEDS: Insulin DETEMIR 100 UNIT/ML X5UNITS SUBQ SCH (07:56)
[2021-07-08 09:58] LABS: Magnesium 1.8 mg/dL (1.6-2.6)
[2021-07-08] MEDS: *HR* Heparin 5,000 UNIT/ML VIAL SQ SCH (21:51)
[2021-07-09 03:26] LABS: BUN/Creatinine Ratio 31 (6-26); Blood Urea Nitrogen 33 mg/dL (6-20); Calcium 8.5 mg/dL (8.6-10.3); Carbon Dioxide 27 mEq/L (23-29); Chloride 104 mEq/L (98-107); Glucose 265 mg/dL (70-105); Osmolality,Calculated 303 (280-300); Potassium 4.5 mEq/L (3.5-5.1); Sodium 138 mEq/L (136-145); eGFR For African Americans > 60 (> 60); eGFR For Non-African Americans > 60 (> 60)
[2021-07-09] MEDS: *HR* Heparin 5,000 UNIT/ML VIAL SQ SCH ×2 (06:13→14:40)
[2021-07-09] MEDS ORDERED: lisinopriL 5 MG TABLET PO SCH (09:00)
[2021-07-09] MEDS ORDERED: Spironolactone 12.5 MG TABLET PO SCH (09:00)
[2021-07-09] MEDS: levETIRAcetam 250 MG TABLET PO SCH (10:00)
[2021-07-09] MEDS: Magnesium Oxide 400 MG TABLET PO SCH (10:00)
[2021-07-09] MEDS: Furosemide 40 MG/4 ML VIAL IVP SCH (10:01)
[2021-07-09] MEDS: Insulin LISPRO 300 UNITS/3 ML VIAL SUBQ SCH ×3 (10:01→16:38)
[2021-07-09] MEDS: carvediloL 6.25 MG TABLET PO SCH ×2 (10:01→16:38)
[2021-07-09] MEDS: Aspirin Enteric Coated 81 MG Tablet PO SCH (10:01)
[2021-07-09] MEDS: Insulin DETEMIR 100 UNIT/ML X5UNITS SUBQ SCH (10:05)
[2021-07-09] MEDS ORDERED: *HR* Midazolam HCl 2 MG/2 ML VIAL ONE (14:20)
[2021-07-09] MEDS ORDERED: *HR* FentaNYL (PF) 100 MCG/2 ML VIAL ONE (14:20)
[2021-07-09] MEDS ORDERED: Nitroglycerin 1,000 MCG/5 ML VIAL IV ONE (14:21)
[2021-07-09] MEDS ORDERED: ISOVUE-370 200 ML INFUS..BTL ONE (14:21)
[2021-07-09] MEDS ORDERED: 0.9 % Sodium Chloride 1,000 ML ONE (14:21)
[2021-07-09] MEDS ORDERED: Heparin 1,000 UNITS/500 mL 500 ML ONE (14:21)
[2021-07-09] MEDS ORDERED: *HR* Heparin 10,000 UNIT/10 ML VIAL ONE (14:21)
[2021-07-09 15:58] VITALS: TEMP 97.6
[2021-07-09 16:43] VITALS: BP 126/78; PULSE 84; O2SAT 93
[2021-07-09] MEDS ORDERED: Furosemide 40 MG TABLET PO SCH (17:00)
== END 2021-07-09 19:02 | disposition home or self-care (01) | DRG 286 ==
LOC: 3NENU 20:27 → EMEROOARM 20:27 → SUATTDRO 07-03 00:53 → 3NENU 07-03 02:30 → SUATTDRO 07-03 14:06
PROVIDERS: ADMIT Family Medicine; ATTEND Student in an Organized Health Care Education/Training Program

== ENCOUNTER 2021-08-23 15:03 | Inpatient (IN) ==
[2021-08-23 15:18] LABS: Basophils % 0.4 %; Eosinophils % 0.1 %; Hematocrit 36.6 % (37.5-50.1); Immature Granulocytes % 0.4 % (0-4); Lymphocytes # 1.2 K/mcL (0.6-4.6); Lymphocytes % 16.9 %; Mean Corpuscular HGB Conc 30.1 g/dL (31.6-35.5); Mean Corpuscular Hemoglobin 26.6 pg (28.0-33.3); Mean Corpuscular Volume 88.4 fL (83.0-100.0); Mean Platelet Volume 9.7 fL (9.4-12.4); Monocytes # 0.7 K/mcL (0.0-1.3); Monocytes % 10.1 %; Neutrophils # 5.2 K/mcL (1.6-8.9); Platelet Count 298 K/mcL (140-400); Red Blood Count 4.14 M/mcL (4.19-5.50); Red Cell Distribution Width 16.9 % (11.5-14.5); Segmented Neutrophils % 72.1 %; White Blood Count 7.2 K/mcL (4.3-11.1)
[2021-08-23 15:24] LABS: INR 1.1; Prothrombin Time 12.2 Seconds (9.4-12.1)
[2021-08-23 15:38] LABS: Alanine Aminotransferase 8 Units/L (7-52); Albumin 3.6 g/dL (3.5-5.7); Albumin/Globulin Ratio 1.2 (1.1-2.2); Alkaline Phosphatase 146 Units/L (34-104); Aspartate Amino Transferase 14 Units/L (13-39); BUN/Creatinine Ratio 29 (6-26); Bilirubin,Total 0.4 mg/dL (0.3-1.0); Blood Urea Nitrogen 29 mg/dL (6-20); Calcium 8.8 mg/dL (8.6-10.3); Carbon Dioxide 31 mEq/L (23-29); Chloride 101 mEq/L (98-107); Glucose 260 mg/dL (70-105); Lipase 6 Units/L (11-82); Osmolality,Calculated 311 (280-300); Potassium 4.2 mEq/L (3.5-5.1); Sodium 143 mEq/L (136-145); Total Protein 6.6 g/dL (6.4-8.9); eGFR For African Americans > 60 (> 60); eGFR For Non-African Americans > 60 (> 60)
[2021-08-23] MEDS ORDERED: Furosemide 40 MG/4 ML VIAL IVP ONE (15:47)
[2021-08-23 16:51] LABS: Troponin I < 0.03 ng/mL (< 0.04)
[2021-08-23] MEDS ORDERED: Isovue-370 500 ML BOTTLE IVP ONE (18:12)
[2021-08-23] MEDS ORDERED: Naloxone 0.4 MG/ML INJ IVP PRN (18:14)
[2021-08-23] MEDS ORDERED: Ondansetron ODT 4 MG TAB.RAPDIS SL PRN (18:14)
[2021-08-23] MEDS ORDERED: MOM Conc 10 ML UD.LIQ PO PRN (18:14)
[2021-08-23] MEDS ORDERED: *HR* Dextrose 50 % in Water (Syg) 50 ML SYRINGE IVP PRN (18:18)
[2021-08-23] MEDS ORDERED: Dextrose 4 GM Chewable Tablets PO PRN ×2 (18:18)
[2021-08-23] MEDS ORDERED: D5% in Water 1,000 ML IVC PRN (18:18)
[2021-08-23 19:16] LABS: Estimated Average Glucose 203 mg/dl; Hemoglobin A1C 8.7 %
[2021-08-23] MEDS: levETIRAcetam 250 MG TABLET PO SCH (20:56)
[2021-08-23] MEDS: Insulin DETEMIR 100 UNIT/ML X5UNITS SUBQ SCH (20:57)
[2021-08-24 05:18] LABS: Basophils % 0.4 %; Eosinophils % 0.3 %; Hematocrit 30.1 % (37.5-50.1); Immature Granulocytes % 0.3 % (0-4); Lymphocytes # 1.3 K/mcL (0.6-4.6); Lymphocytes % 18.7 %; Mean Corpuscular HGB Conc 29.9 g/dL (31.6-35.5); Mean Corpuscular Hemoglobin 26.2 pg (28.0-33.3); Mean Corpuscular Volume 87.8 fL (83.0-100.0); Mean Platelet Volume 10.3 fL (9.4-12.4); Monocytes # 0.9 K/mcL (0.0-1.3); Monocytes % 12.7 %; Neutrophils # 4.8 K/mcL (1.6-8.9); Platelet Count 264 K/mcL (140-400); Red Blood Count 3.43 M/mcL (4.19-5.50); Red Cell Distribution Width 16.8 % (11.5-14.5); Segmented Neutrophils % 67.6 %; White Blood Count 7.2 K/mcL (4.3-11.1)
[2021-08-24 05:29] LABS: BUN/Creatinine Ratio 35 (6-26); Blood Urea Nitrogen 31 mg/dL (6-20); Calcium 8.1 mg/dL (8.6-10.3); Carbon Dioxide 30 mEq/L (23-29); Chloride 103 mEq/L (98-107); Chol/HDL Ratio 3.1 (0-4.9); Cholesterol 95 mg/dL (< 200); Glucose 177 mg/dL (70-105); HDL Cholesterol 31 mg/dL (40-59); LDL Cholesterol,Calculated 54 mg/dL (< 100); Magnesium 1.5 mg/dL (1.6-2.6); Osmolality,Calculated 305 (280-300); Potassium 4.4 mEq/L (3.5-5.1); Sodium 142 mEq/L (136-145); Triglycerides 51 mg/dL (< 150); eGFR For African Americans > 60 (> 60); eGFR For Non-African Americans > 60 (> 60)
[2021-08-24] MEDS: *HR* Heparin 5,000 UNIT/ML VIAL SQ SCH ×2 (05:40→17:24)
[2021-08-24] MEDS: Furosemide 40 MG/4 ML VIAL IVP SCH ×2 (08:25→17:24)
[2021-08-24] MEDS: levETIRAcetam 250 MG TABLET PO SCH ×2 (08:26→20:59)
[2021-08-24] MEDS: carvediloL 6.25 MG TABLET PO SCH ×2 (08:26→17:24)
[2021-08-24] MEDS: Aspirin Enteric Coated 81 MG Tablet PO SCH (08:26)
[2021-08-24] MEDS: Insulin LISPRO 300 UNITS/3 ML VIAL SUBQ SCH ×3 (12:53→20:57)
[2021-08-24] MEDS: Spironolactone 25 MG TABLET PO SCH (12:53)
[2021-08-24] MEDS: lisinopriL 20 MG TABLET PO SCH (12:53)
[2021-08-24 14:23] LABS: LDH,Pleural Fluid 54 Units/L (No Ref Range); Total Protein,Pleural Fluid < 2.0 g/dL
[2021-08-24] MEDS: Insulin DETEMIR 100 UNIT/ML X5UNITS SUBQ SCH (20:58)
[2021-08-25 03:20] LABS: BUN/Creatinine Ratio 29 (6-26); Blood Urea Nitrogen 37 mg/dL (6-20); Calcium 8.1 mg/dL (8.6-10.3); Carbon Dioxide 25 mEq/L (23-29); Chloride 107 mEq/L (98-107); Glucose 131 mg/dL (70-105); Osmolality,Calculated 300 (280-300); Potassium 5.9 mEq/L (3.5-5.1); Sodium 140 mEq/L (136-145); eGFR For African Americans > 60 (> 60); eGFR For Non-African Americans 59 (> 60)
[2021-08-25 03:28] LABS: Basophils % 0.5 %; Eosinophils # 0.2 K/mcL (0.0-0.6); Eosinophils % 2.3 %; Hematocrit 28.5 % (37.5-50.1); Hemoglobin 8.6 g/dL (12.9-16.9); Immature Granulocytes % 5.2 % (0-4); Lymphocytes # 1.4 K/mcL (0.6-4.6); Lymphocytes % 16.6 %; Mean Corpuscular HGB Conc 30.2 g/dL (31.6-35.5); Mean Corpuscular Hemoglobin 26.1 pg (28.0-33.3); Mean Corpuscular Volume 86.4 fL (83.0-100.0); Mean Platelet Volume 10.6 fL (9.4-12.4); Monocytes # 0.7 K/mcL (0.0-1.3); Monocytes % 8.8 %; Neutrophils # 5.6 K/mcL (1.6-8.9); Nucleated Red Blood Cells 0.7 /100 WBC (0); Platelet Count 213 K/mcL (140-400); Red Cell Distribution Width 16.5 % (11.5-14.5); Segmented Neutrophils % 66.6 %; White Blood Count 8.4 K/mcL (4.3-11.1)
[2021-08-25] MEDS: Spironolactone 25 MG TABLET PO SCH (08:05)
[2021-08-25] MEDS: *HR* Heparin 5,000 UNIT/ML VIAL SQ SCH ×2 (08:05→17:52)
[2021-08-25] MEDS: Furosemide 40 MG/4 ML VIAL IVP SCH ×2 (08:05→17:52)
[2021-08-25] MEDS: lisinopriL 20 MG TABLET PO SCH (08:06)
[2021-08-25] MEDS: levETIRAcetam 250 MG TABLET PO SCH ×2 (08:06→20:49)
[2021-08-25] MEDS: carvediloL 6.25 MG TABLET PO SCH ×2 (08:06→17:53)
[2021-08-25] MEDS: Aspirin Enteric Coated 81 MG Tablet PO SCH (08:06)
[2021-08-25] MEDS: Insulin LISPRO 300 UNITS/3 ML VIAL SUBQ SCH ×3 (08:11→16:22)
[2021-08-25] MEDS: Albumin 25% 25gram/100mL 25 GM/100 ML IV.SOLN IVPB SCH (16:27)
[2021-08-25] MEDS: SODIUM ZIRCONIUM CYCLOSILICATE 5 GM POWD.PACK PO SCH (17:53)
[2021-08-25] MEDS: Insulin DETEMIR 100 UNIT/ML X5UNITS SUBQ SCH (20:49)
[2021-08-26] MEDS: Albumin 25% 25gram/100mL 25 GM/100 ML IV.SOLN IVPB SCH ×4 (01:40→23:08)
[2021-08-26] MEDS: Insulin LISPRO 300 UNITS/3 ML VIAL SUBQ SCH ×5 (05:20→21:16)
[2021-08-26] MEDS: *HR* Heparin 5,000 UNIT/ML VIAL SQ SCH ×2 (06:07→16:40)
[2021-08-26 07:34] LABS: Basophils # 0.1 K/mcL (0.0-0.2); Basophils % 0.7 %; Eosinophils # 0.2 K/mcL (0.0-0.6); Eosinophils % 2.5 %; Hematocrit 28.3 % (37.5-50.1); Hemoglobin 8.4 g/dL (12.9-16.9); Immature Granulocytes % 1.5 % (0-4); Lymphocytes # 1.1 K/mcL (0.6-4.6); Mean Corpuscular HGB Conc 29.7 g/dL (31.6-35.5); Mean Corpuscular Hemoglobin 25.8 pg (28.0-33.3); Mean Corpuscular Volume 86.8 fL (83.0-100.0); Mean Platelet Volume 10.4 fL (9.4-12.4); Monocytes # 0.8 K/mcL (0.0-1.3); Monocytes % 10.3 %; Neutrophils # 5.3 K/mcL (1.6-8.9); Platelet Count 247 K/mcL (140-400); Red Blood Count 3.26 M/mcL (4.19-5.50); Red Cell Distribution Width 16.3 % (11.5-14.5); White Blood Count 7.5 K/mcL (4.3-11.1)
[2021-08-26] MEDS: levETIRAcetam 250 MG TABLET PO SCH ×2 (07:55→21:13)
[2021-08-26] MEDS: Aspirin Enteric Coated 81 MG Tablet PO SCH (07:56)
[2021-08-26] MEDS: Furosemide 40 MG/4 ML VIAL IVP SCH (07:56)
[2021-08-26] MEDS: carvediloL 6.25 MG TABLET PO SCH ×2 (07:57→16:39)
[2021-08-26] MEDS: SODIUM ZIRCONIUM CYCLOSILICATE 5 GM POWD.PACK PO SCH (07:57)
[2021-08-26 09:17] LABS: BUN/Creatinine Ratio 36 (6-26); Blood Urea Nitrogen 49 mg/dL (6-20); Calcium 8.3 mg/dL (8.6-10.3); Carbon Dioxide 29 mEq/L (23-29); Chloride 106 mEq/L (98-107); Glucose 155 mg/dL (70-105); Osmolality,Calculated 306 (280-300); Potassium 4.9 mEq/L (3.5-5.1); Sodium 140 mEq/L (136-145); eGFR For African Americans > 60 (> 60); eGFR For Non-African Americans 54 (> 60)
[2021-08-26] MEDS ORDERED: Furosemide 40 MG/4 ML VIAL IVP SCH (17:00)
[2021-08-26] MEDS: Insulin DETEMIR 100 UNIT/ML X5UNITS SUBQ SCH (21:13)
[2021-08-27 05:33] LABS: BUN/Creatinine Ratio 38 (6-26); Blood Urea Nitrogen 54 mg/dL (6-20); Calcium 8.5 mg/dL (8.6-10.3); Carbon Dioxide 29 mEq/L (23-29); Chloride 106 mEq/L (98-107); Glucose 164 mg/dL (70-105); Magnesium 2.1 mg/dL (1.6-2.6); Osmolality,Calculated 312 (280-300); Phosphorous 5.1 mg/dL (2.7-4.5); Potassium 4.6 mEq/L (3.5-5.1); Sodium 142 mEq/L (136-145); eGFR For African Americans > 60 (> 60); eGFR For Non-African Americans 51 (> 60)
[2021-08-27] MEDS: *HR* Heparin 5,000 UNIT/ML VIAL SQ SCH ×2 (05:43→16:49)
[2021-08-27] MEDS: Insulin LISPRO 300 UNITS/3 ML VIAL SUBQ SCH ×4 (08:10→20:43)
[2021-08-27] MEDS: Albumin 25% 25gram/100mL 25 GM/100 ML IV.SOLN IVPB SCH ×3 (08:43→23:06)
[2021-08-27] MEDS: Aspirin Enteric Coated 81 MG Tablet PO SCH (08:43)
[2021-08-27] MEDS: levETIRAcetam 250 MG TABLET PO SCH ×2 (08:43→20:41)
[2021-08-27] MEDS: carvediloL 6.25 MG TABLET PO SCH ×2 (08:43→16:49)
[2021-08-27] MEDS: Insulin DETEMIR 100 UNIT/ML X5UNITS SUBQ SCH (20:41)
[2021-08-28 03:32] LABS: Calcium 8.8 mg/dL (8.6-10.3); Magnesium 2.4 mg/dL (1.6-2.6); Phosphorous 4.9 mg/dL (2.7-4.5); Potassium 4.9 mEq/L (3.5-5.1)
[2021-08-28] MEDS: *HR* Heparin 5,000 UNIT/ML VIAL SQ SCH ×2 (05:13→17:20)
[2021-08-28] MEDS ORDERED: Furosemide 20 MG/2 ML VIAL IVP ONE (07:15)
[2021-08-28] MEDS: Insulin LISPRO 300 UNITS/3 ML VIAL SUBQ SCH ×4 (08:19→19:50)
[2021-08-28] MEDS: Albumin 25% 25gram/100mL 25 GM/100 ML IV.SOLN IVPB SCH ×3 (08:24→23:17)
[2021-08-28] MEDS: carvediloL 6.25 MG TABLET PO SCH ×2 (08:25→16:34)
[2021-08-28] MEDS: Aspirin Enteric Coated 81 MG Tablet PO SCH (08:25)
[2021-08-28] MEDS: levETIRAcetam 250 MG TABLET PO SCH ×2 (08:25→19:50)
[2021-08-28 19:09] LABS: Protein/Creatinine Ratio,Urine 0.29 mg/mg (0.00-0.20)
[2021-08-28 19:11] LABS: Bacteria,Urine Few per hpf (None-Few); Bilirubin,Urine Negative (Negative); Blood,Urine Large (Negative); Clarity,Urine Turbid (Clear); Color,Urine Yellow (Yellow); Glucose,Urine (UA) Normal (Normal); Hyaline Casts,Urine Many per lpf (None Seen); Ketones,Urine Negative (Negative); Leukocyte Esterase,Urine Small (Negative); Mucus,Urine Few per lpf (None-Few); Nitrite,Urine Negative (Negative); PH,Urine 5.5 pH Units (5.0-8.0); Protein,Urine 30 mg/dL (Neg-Trace); RBC,Urine TNTC per hpf (0-3); Sperm,Urine Present per hpf (None Seen)
[2021-08-28] MEDS: Insulin DETEMIR 100 UNIT/ML X5UNITS SUBQ SCH (19:50)
[2021-08-29] MEDS: *HR* Heparin 5,000 UNIT/ML VIAL SQ SCH ×2 (05:27→16:30)
[2021-08-29] MEDS: Insulin LISPRO 300 UNITS/3 ML VIAL SUBQ SCH ×4 (07:31→21:13)
[2021-08-29] MEDS: carvediloL 6.25 MG TABLET PO SCH ×2 (07:44→16:30)
[2021-08-29] MEDS: Aspirin Enteric Coated 81 MG Tablet PO SCH (07:44)
[2021-08-29] MEDS: levETIRAcetam 250 MG TABLET PO SCH ×2 (07:44→21:00)
[2021-08-29 14:42] LABS: Calcium 9.1 mg/dL (8.6-10.3); Magnesium 2.4 mg/dL (1.6-2.6); Phosphorous 5.6 mg/dL (2.7-4.5); Potassium 5.4 mEq/L (3.5-5.1)
[2021-08-29] MEDS: SODIUM ZIRCONIUM CYCLOSILICATE 5 GM POWD.PACK PO SCH (15:21)
[2021-08-29] MEDS: Insulin DETEMIR 100 UNIT/ML X5UNITS SUBQ SCH (21:00)
[2021-08-29] MEDS: Acetaminophen 325 MG TABLET PO PRN (22:06)
[2021-08-29] MEDS: Melatonin 3 MG TABLET PO PRN (22:06)
[2021-08-30 02:24] LABS: Calcium 8.7 mg/dL (8.6-10.3); Magnesium 2.4 mg/dL (1.6-2.6); Phosphorous 6.2 mg/dL (2.7-4.5); Potassium 5.4 mEq/L (3.5-5.1)
[2021-08-30] MEDS: Acetaminophen 325 MG TABLET PO PRN (04:13)
[2021-08-30] MEDS: *HR* Heparin 5,000 UNIT/ML VIAL SQ SCH ×2 (05:05→16:48)
[2021-08-30] MEDS: carvediloL 6.25 MG TABLET PO SCH ×2 (07:37→16:48)
[2021-08-30] MEDS: levETIRAcetam 250 MG TABLET PO SCH ×2 (07:42→20:09)
[2021-08-30] MEDS: Aspirin Enteric Coated 81 MG Tablet PO SCH (07:42)
[2021-08-30] MEDS: SODIUM ZIRCONIUM CYCLOSILICATE 5 GM POWD.PACK PO SCH (07:42)
[2021-08-30] MEDS: Insulin LISPRO 300 UNITS/3 ML VIAL SUBQ SCH ×4 (07:43→20:12)
[2021-08-30] MEDS: Albumin 25% 25gram/100mL 25 GM/100 ML IV.SOLN IVPB SCH ×3 (08:34→23:08)
[2021-08-30] MEDS: *HR* HYDROcodone/Acet 5/325 mg TABLET PO PRN ×4 (08:34→20:58)
[2021-08-30 09:49] LABS: ABG Base Excess 3 mEq/L (-2 to 3); ABG HCO3 30 mEq/L (21-27); ABG Oxygen Saturation 94 % (95-98); ABG PCO2 59 mmHg (35-45); ABG PH 7.31 pH Units (7.32-7.45); ABG PO2 79 mmHg (85-104); ABG TCO2 32 mEq/L (20-26)
[2021-08-30] MEDS ORDERED: Chlorothiazide Sodium 500 MG VIAL IVP ONE (10:22)
[2021-08-30] MEDS: Furosemide 240 MG in 0.9 % Sodium Chloride 96 ML IVC SCH (11:03)
[2021-08-30 13:50] LABS: Total Protein 6.1 g/dL (6.4-8.9)
[2021-08-30] MEDS: Insulin DETEMIR 100 UNIT/ML X5UNITS SUBQ SCH (20:10)
[2021-08-30] MEDS: Melatonin 3 MG TABLET PO PRN (20:58)
[2021-08-31] MEDS: *HR* HYDROcodone/Acet 5/325 mg TABLET PO PRN ×3 (02:56→21:21)
[2021-08-31] MEDS: *HR* Heparin 5,000 UNIT/ML VIAL SQ SCH ×2 (05:16→17:05)
[2021-08-31 05:43] LABS: Calcium 8.6 mg/dL (8.6-10.3); Magnesium 2.5 mg/dL (1.6-2.6); Phosphorous 5.9 mg/dL (2.7-4.5)
[2021-08-31] MEDS: levETIRAcetam 250 MG TABLET PO SCH ×2 (07:19→21:21)
[2021-08-31] MEDS: Aspirin Enteric Coated 81 MG Tablet PO SCH (07:19)
[2021-08-31] MEDS: SODIUM ZIRCONIUM CYCLOSILICATE 5 GM POWD.PACK PO SCH (07:19)
[2021-08-31] MEDS: carvediloL 6.25 MG TABLET PO SCH ×2 (07:19→16:58)
[2021-08-31 07:55] LABS: ANA IgG by ELISA NONE DETECTED (None Detected)
[2021-08-31] MEDS: Insulin LISPRO 300 UNITS/3 ML VIAL SUBQ SCH ×4 (08:16→20:33)
[2021-08-31] MEDS: *HR* OxyCODONE/APAP 10/325 TABLET PO PRN ×2 (10:32→17:02)
[2021-08-31] MEDS: Albumin 25% 25gram/100mL 25 GM/100 ML IV.SOLN IVPB SCH ×3 (11:39→23:35)
[2021-08-31 14:19] LABS: RBC,Pleural Fluid < 2000 RBC/mcL
[2021-08-31 15:08] LABS: Appearance of Pleural Fl Clear (Clear)
[2021-08-31] MEDS: Furosemide 240 MG in 0.9 % Sodium Chloride 96 ML IVC SCH (17:21)
[2021-08-31] MEDS: Insulin DETEMIR 100 UNIT/ML X5UNITS SUBQ SCH (21:02)
[2021-08-31] MEDS: Melatonin 3 MG TABLET PO PRN (21:21)
[2021-09-01] MEDS: *HR* OxyCODONE/APAP 10/325 TABLET PO PRN (01:28)
[2021-09-01] MEDS: *HR* Heparin 5,000 UNIT/ML VIAL SQ SCH ×2 (04:54→17:18)
[2021-09-01] MEDS ORDERED: *HR* LORazepam 2 MG/ML VIAL IVP ONE (05:07)
[2021-09-01 06:03] LABS: Basophils % 0.4 %; Hematocrit 26.9 % (37.5-50.1); Hemoglobin 7.8 g/dL (12.9-16.9); Immature Granulocytes % 0.2 % (0-4); Lymphocytes # 0.7 K/mcL (0.6-4.6); Lymphocytes % 14.6 %; Mean Corpuscular Hemoglobin 25.8 pg (28.0-33.3); Mean Corpuscular Volume 89.1 fL (83.0-100.0); Mean Platelet Volume 9.8 fL (9.4-12.4); Monocytes # 0.6 K/mcL (0.0-1.3); Monocytes % 12.5 %; Neutrophils # 3.4 K/mcL (1.6-8.9); Platelet Count 262 K/mcL (140-400); Red Blood Count 3.02 M/mcL (4.19-5.50); Red Cell Distribution Width 15.9 % (11.5-14.5); Segmented Neutrophils % 72.3 %; White Blood Count 4.7 K/mcL (4.3-11.1)
[2021-09-01 06:30] LABS: Calcium 9.1 mg/dL (8.6-10.3); Magnesium 2.6 mg/dL (1.6-2.6); Phosphorous 5.8 mg/dL (2.7-4.5); Potassium 5.2 mEq/L (3.5-5.1)
[2021-09-01] MEDS: Albumin 25% 25gram/100mL 25 GM/100 ML IV.SOLN IVPB SCH ×3 (08:12→20:05)
[2021-09-01] MEDS: Insulin LISPRO 300 UNITS/3 ML VIAL SUBQ SCH ×4 (08:12→20:06)
[2021-09-01 08:48] LABS: ABG Base Excess 3 mEq/L (-2 to 3); ABG HCO3 29 mEq/L (21-27); ABG Oxygen Saturation 97 % (95-98); ABG PCO2 51 mmHg (35-45); ABG PH 7.37 pH Units (7.32-7.45); ABG PO2 95 mmHg (85-104); ABG TCO2 31 mEq/L (20-26)
[2021-09-01] MEDS: carvediloL 6.25 MG TABLET PO SCH ×2 (09:28→17:18)
[2021-09-01] MEDS: levETIRAcetam 250 MG TABLET PO SCH ×2 (09:28→20:05)
[2021-09-01] MEDS: Aspirin Enteric Coated 81 MG Tablet PO SCH (09:28)
[2021-09-01 10:53] LABS: Kappa Qnt Free Light Chains 83.97 mg/L (3.30-19.40); Lambda Qnt Free Light Chains 58.72 mg/L (5.71-26.30)
[2021-09-01] MEDS ORDERED: Chlorothiazide Sodium 500 MG VIAL IVP ONE (11:56)
[2021-09-01] MEDS: *HR* HYDROcodone/Acet 5/325 mg TABLET PO PRN (20:05)
[2021-09-01] MEDS: Melatonin 3 MG TABLET PO PRN (20:05)
[2021-09-01] MEDS: Insulin DETEMIR 100 UNIT/ML X5UNITS SUBQ SCH (20:06)
[2021-09-01 21:48] LABS: Alpha 2 Globulin (PEP) 0.73 g/dL (0.48-1.05); Beta Globulin (PEP) 0.68 g/dL (0.48-1.10)
[2021-09-02] MEDS: Furosemide 240 MG in 0.9 % Sodium Chloride 96 ML IVC SCH (00:50)
[2021-09-02] MEDS: *HR* Heparin 5,000 UNIT/ML VIAL SQ SCH ×2 (04:38→17:12)
[2021-09-02] MEDS: Albumin 25% 25gram/100mL 25 GM/100 ML IV.SOLN IVPB SCH ×3 (04:39→21:01)
[2021-09-02 05:11] LABS: Hemoglobin 8.4 g/dL (12.9-16.9)
[2021-09-02 05:30] LABS: Calcium 9.8 mg/dL (8.6-10.3); Magnesium 2.4 mg/dL (1.6-2.6); Phosphorous 5.2 mg/dL (2.7-4.5); Potassium 4.6 mEq/L (3.5-5.1)
[2021-09-02 06:52] LABS: IFE Reflexed NOT DONE
[2021-09-02] MEDS: Aspirin Enteric Coated 81 MG Tablet PO SCH (08:05)
[2021-09-02] MEDS: carvediloL 6.25 MG TABLET PO SCH ×2 (08:05→17:12)
[2021-09-02] MEDS: levETIRAcetam 250 MG TABLET PO SCH ×2 (08:05→20:59)
[2021-09-02] MEDS: Insulin LISPRO 300 UNITS/3 ML VIAL SUBQ SCH ×4 (08:13→20:59)
[2021-09-02] MEDS ORDERED: Chlorothiazide Sodium 500 MG VIAL IVP ONE ×2 (13:21→14:00)
[2021-09-02 20:31] LABS: ANCA IFA Titer <1:20 (<1:20)
[2021-09-02] MEDS: Melatonin 3 MG TABLET PO PRN (20:58)
[2021-09-02] MEDS: *HR* OxyCODONE/APAP 10/325 TABLET PO PRN (20:59)
[2021-09-02] MEDS: Insulin DETEMIR 100 UNIT/ML X5UNITS SUBQ SCH (21:05)
[2021-09-03] MEDS: Albumin 25% 25gram/100mL 25 GM/100 ML IV.SOLN IVPB SCH ×3 (04:59→20:08)
[2021-09-03] MEDS: *HR* Heparin 5,000 UNIT/ML VIAL SQ SCH ×2 (05:00→18:23)
[2021-09-03 07:22] LABS: Calcium 9.5 mg/dL (8.6-10.3); Magnesium 2.5 mg/dL (1.6-2.6); Potassium 4.4 mEq/L (3.5-5.1)
[2021-09-03] MEDS: levETIRAcetam 250 MG TABLET PO SCH ×2 (07:59→20:08)
[2021-09-03] MEDS: carvediloL 6.25 MG TABLET PO SCH ×2 (07:59→16:30)
[2021-09-03] MEDS: Aspirin Enteric Coated 81 MG Tablet PO SCH (07:59)
[2021-09-03] MEDS: Insulin LISPRO 300 UNITS/3 ML VIAL SUBQ SCH ×4 (08:00→20:17)
[2021-09-03 09:30] LABS: ANCA IFA Pattern NONE DETECTED (None Detected); Serine Protease-3 Antibody 4 AU/mL (0-19)
[2021-09-03] MEDS: *HR* HYDROcodone/Acet 5/325 mg TABLET PO PRN (16:29)
[2021-09-03] MEDS: Insulin DETEMIR 100 UNIT/ML X5UNITS SUBQ SCH (20:17)
[2021-09-04 04:29] LABS: Basophils % 0.2 %; Hematocrit 27.2 % (37.5-50.1); Hemoglobin 7.5 g/dL (12.9-16.9); Immature Granulocytes % 0.3 % (0-4); Lymphocytes # 0.4 K/mcL (0.6-4.6); Lymphocytes % 6.2 %; Mean Corpuscular HGB Conc 27.6 g/dL (31.6-35.5); Mean Corpuscular Hemoglobin 24.8 pg (28.0-33.3); Mean Corpuscular Volume 89.8 fL (83.0-100.0); Mean Platelet Volume 9.8 fL (9.4-12.4); Monocytes # 0.6 K/mcL (0.0-1.3); Monocytes % 9.3 %; Platelet Count 243 K/mcL (140-400); Red Blood Count 3.03 M/mcL (4.19-5.50); Red Cell Distribution Width 16.5 % (11.5-14.5); White Blood Count 6.1 K/mcL (4.3-11.1)
[2021-09-04 04:33] LABS: Anisocytosis 1+ (Not Present); Hypochromasia Present (Not Present); Neutrophils # 5.1 K/mcL (1.6-8.9); Platelet Estimate Normal (Normal)
[2021-09-04 04:39] LABS: Calcium 9.7 mg/dL (8.6-10.3); Potassium 4.3 mEq/L (3.5-5.1)
[2021-09-04] MEDS: *HR* Heparin 5,000 UNIT/ML VIAL SQ SCH ×2 (05:43→18:36)
[2021-09-04] MEDS: Insulin LISPRO 300 UNITS/3 ML VIAL SUBQ SCH ×4 (07:30→23:30)
[2021-09-04] MEDS: levETIRAcetam 250 MG TABLET PO SCH ×2 (07:31→21:09)
[2021-09-04] MEDS: Aspirin Enteric Coated 81 MG Tablet PO SCH (07:31)
[2021-09-04] MEDS: carvediloL 6.25 MG TABLET PO SCH ×2 (07:31→18:36)
[2021-09-04] MEDS ORDERED: 0.9 % Sodium Chloride 1,000 ML ONE (07:41)
[2021-09-04 07:57] LABS: ABG Base Excess 7 mEq/L (-2 to 3); ABG HCO3 35 mEq/L (21-27); ABG Oxygen Saturation 86 % (95-98); ABG PCO2 79 mmHg (35-45); ABG PH 7.26 pH Units (7.32-7.45); ABG PO2 62 mmHg (85-104); ABG TCO2 38 mEq/L (20-26); Blood Gas Modality BiLevel; Blood Gas VT 550 cc
[2021-09-04] MEDS ORDERED: Norepinephrine 4 MG/254 ML IV.SOLN IVC ONE (09:52)
[2021-09-04] MEDS ORDERED: Dexmedetomidine HCl 400 MCG/100 ML MLS IVC ONE (09:53)
[2021-09-04] MEDS ORDERED: Lidocaine -MPF 1% 5 ML AMPUL INFILT ONE (09:55)
[2021-09-04 09:57] LABS: ABG Base Excess 8 mEq/L (-2 to 3); ABG HCO3 36 mEq/L (21-27); ABG Oxygen Saturation 57 % (95-98); ABG PCO2 71 mmHg (35-45); ABG PH 7.31 pH Units (7.32-7.45); ABG PO2 34 mmHg (85-104); ABG TCO2 38 mEq/L (20-26); Blood Gas Modality BiLevel
[2021-09-04] MEDS ORDERED: Dexmedetomidine HCl 400 MCG/100 ML MLS IVC SCH (10:00)
[2021-09-04] MEDS ORDERED: Furosemide 40 MG/4 ML VIAL ONE (10:18)
[2021-09-04] MEDS ORDERED: 0.9 % Sodium Chloride 500 ML ONE (10:18)
[2021-09-04] MEDS ORDERED: FentaNYL (PF) 1,000 MCG/100 ML IV.SOLN ONE (10:20)
[2021-09-04] MEDS ORDERED: Furosemide 40 MG/4 ML VIAL IVP ONE (10:29)
[2021-09-04] MEDS ORDERED: FentaNYL (PF) 1,000 MCG/100 ML IV.SOLN IVC SCH (10:30)
[2021-09-04] MEDS: Norepinephrine 4 MG/254 ML IV.SOLN IVC SCH ×2 (10:36→23:21)
[2021-09-04] MEDS ORDERED: niCARdipine 0 MG/0 ML MLS IVC ONE (10:56)
[2021-09-04] MEDS: Furosemide 240 MG in 0.9 % Sodium Chloride 96 ML IVC SCH ×3 (11:00→14:00)
[2021-09-04 11:46] LABS: ABG Base Excess 7 mEq/L (-2 to 3); ABG HCO3 31 mEq/L (21-27); ABG Oxygen Saturation 96 % (95-98); ABG PCO2 45 mmHg (35-45); ABG PH 7.45 pH Units (7.32-7.45); ABG PO2 80 mmHg (85-104); ABG TCO2 33 mEq/L (20-26); Blood Gas Modality ASSIST CONTROL; Blood Gas VT 450 cc
[2021-09-04] MEDS ORDERED: Albumin 25% 25gram/100mL 25 GM/100 ML IV.SOLN IVPB ONE (12:41)
[2021-09-04] MEDS ORDERED: DOBUTamine 1,000 MG/250 ML BAG IVC SCH (14:00)
[2021-09-04 15:22] LABS: ABG Base Excess 7 mEq/L (-2 to 3); ABG HCO3 32 mEq/L (21-27); ABG Oxygen Saturation 89 % (95-98); ABG PCO2 48 mmHg (35-45); ABG PH 7.43 pH Units (7.32-7.45); ABG PO2 56 mmHg (85-104); ABG TCO2 33 mEq/L (20-26); Blood Gas Modality ASSIST CONTROL; Blood Gas VT 450 cc
[2021-09-04] MEDS ORDERED: 0.9 % Sodium Chloride 250 ML IVC PRN (15:55)
[2021-09-04] MEDS ORDERED: 0.9 % Sodium Chloride 1,000 ML PRIME SCH (16:00)
[2021-09-04] MEDS ORDERED: Artificial Tears SOLN 15 ML BOTTLE BOTH EYES PRN (16:05)
[2021-09-04] MEDS ORDERED: *HR* Heparin 10,000 UNIT/10 ML VIAL IV PRN (16:06)
[2021-09-04] MEDS ORDERED: *HR* Etomidate 20 MG/10 ML AMPUL IVP ONE (16:27)
[2021-09-04] MEDS ORDERED: *HR* Midazolam HCl 2 MG/2 ML VIAL IVP ONE (16:27)
[2021-09-04] MEDS ORDERED: *HR* Midazolam HCl 5 MG/5 ML VIAL IVP ONE (16:27)
[2021-09-04] MEDS ORDERED: *HR* Rocuronium Bromide 50 MG/5 ML VIAL IVP ONE ×2 (16:27→16:35)
[2021-09-04] MEDS: Dexmedetomidine HCl 400 MCG/100 ML MLS IVC SCH ×2 (16:52→23:27)
[2021-09-04] MEDS: Midazolam HCl 50 MG/50 ML IV.SOLN IVC SCH (18:00)
[2021-09-04] MEDS: Cisatracurium 200 MG in 0.9 % Sodium Chloride 80 ML IVC SCH (18:00)
[2021-09-04] MEDS: Pantoprazole 40 MG VIAL IVP SCH (18:36)
[2021-09-04] MEDS: FentaNYL (PF) 1,000 MCG/100 ML IV.SOLN IVC SCH (18:36)
[2021-09-04 19:48] LABS: Hepatitis B Surface Antibody < 3.10 mIU/mL
[2021-09-04 19:59] LABS: Hepatitis B Surface Antigen Nonreactive (Nonreactive)
[2021-09-04] MEDS: Chlorhexidine Rinse 15 ML MOUTHWASH MM SCH (21:09)
[2021-09-04] MEDS: Artificial Tears SOLN 15 ML BOTTLE BOTH EYES SCH ×2 (21:09→23:27)
[2021-09-04 22:51] LABS: ABG Base Excess 7 mEq/L (-2 to 3); ABG HCO3 30 mEq/L (21-27); ABG Oxygen Saturation 99 % (95-98); ABG PCO2 35 mmHg (35-45); ABG PH 7.54 pH Units (7.32-7.45); ABG PO2 99 mmHg (85-104); ABG TCO2 31 mEq/L (20-26); Blood Gas VT 400 cc
[2021-09-05] MEDS: FentaNYL (PF) 1,000 MCG/100 ML IV.SOLN IVC SCH ×5 (00:11→20:58)
[2021-09-05] MEDS: Furosemide 240 MG in 0.9 % Sodium Chloride 96 ML IVC SCH ×2 (02:00→23:05)
[2021-09-05] MEDS: Midazolam HCl 50 MG/50 ML IV.SOLN IVC SCH ×2 (02:02→17:53)
[2021-09-05 02:49] LABS: Alanine Aminotransferase 10 Units/L (7-52); Albumin 4.2 g/dL (3.5-5.7); Albumin/Globulin Ratio 2.2 (1.1-2.2); Alkaline Phosphatase 83 Units/L (34-104); Aspartate Amino Transferase 11 Units/L (13-39); BUN/Creatinine Ratio 62 (6-26); Bilirubin,Total 0.9 mg/dL (0.3-1.0); Blood Urea Nitrogen 87 mg/dL (6-20); Calcium 9.5 mg/dL (8.6-10.3); Carbon Dioxide 31 mEq/L (23-29); Chloride 102 mEq/L (98-107); Globulin 1.9 g/dL (2.4-3.5); Glucose 135 mg/dL (70-105); Magnesium 2.2 mg/dL (1.6-2.6); Osmolality,Calculated 325 (280-300); Phosphorous 4.5 mg/dL (2.7-4.5); Potassium 4.2 mEq/L (3.5-5.1); Sodium 143 mEq/L (136-145); Total Protein 6.1 g/dL (6.4-8.9); eGFR For African Americans > 60 (> 60); eGFR For Non-African Americans 52 (> 60)
[2021-09-05 02:50] LABS: Basophils % 0.1 %; Hematocrit 27.6 % (37.5-50.1); Hemoglobin 8.6 g/dL (12.9-16.9); Immature Granulocytes % 0.1 % (0-4); Lymphocytes # 0.8 K/mcL (0.6-4.6); Lymphocytes % 11.8 %; Mean Corpuscular HGB Conc 31.2 g/dL (31.6-35.5); Mean Corpuscular Hemoglobin 25.7 pg (28.0-33.3); Mean Corpuscular Volume 82.6 fL (83.0-100.0); Mean Platelet Volume 10.2 fL (9.4-12.4); Monocytes # 0.6 K/mcL (0.0-1.3); Monocytes % 9.3 %; Neutrophils # 5.4 K/mcL (1.6-8.9); Platelet Count 257 K/mcL (140-400); Red Blood Count 3.34 M/mcL (4.19-5.50); Red Cell Distribution Width 16.7 % (11.5-14.5); Segmented Neutrophils % 78.7 %; White Blood Count 6.9 K/mcL (4.3-11.1)
[2021-09-05 04:00] LABS: ABG Base Excess 5 mEq/L (-2 to 3); ABG HCO3 29 mEq/L (21-27); ABG Oxygen Saturation 99 % (95-98); ABG PCO2 41 mmHg (35-45); ABG PH 7.46 pH Units (7.32-7.45); ABG PO2 119 mmHg (85-104); ABG TCO2 31 mEq/L (20-26); Blood Gas VT 400 cc
[2021-09-05] MEDS: Cisatracurium 200 MG in 0.9 % Sodium Chloride 80 ML IVC SCH (04:10)
[2021-09-05] MEDS: Artificial Tears SOLN 15 ML BOTTLE BOTH EYES SCH ×6 (04:11→23:06)
[2021-09-05] MEDS: Insulin LISPRO 300 UNITS/3 ML VIAL SUBQ SCH ×6 (04:11→23:40)
[2021-09-05] MEDS: *HR* Heparin 5,000 UNIT/ML VIAL SQ SCH ×2 (05:50→17:09)
[2021-09-05] MEDS: Dexmedetomidine HCl 400 MCG/100 ML MLS IVC SCH ×4 (05:50→23:41)
[2021-09-05 07:06] LABS: Adenovirus Not Detected (Not Detect); Bordetella Pertussis Not Detected (Not Detect); Chlamydophila pneumoniae Not Detected (Not Detect); Coronavirus 229E Not Detected (Not Detect); Coronavirus HKU1 Not Detected (Not Detect); Coronavirus NL63 Not Detected (Not Detect); Coronavirus OC43 Not Detected (Not Detect); Human Metapneumovirus Not Detected (Not Detect); Human Rhinovirus/Enterovirus Not Detected (Not Detect); Influenza A Subtype 2009 H1 Not Detected (Not Detect); Influenza B Not Detected (Not Detect); Mycoplasma pneumoniae Not Detected (Not Detect); Parainfluenza Virus 1 Not Detected (Not Detect); Parainfluenza Virus 2 Not Detected (Not Detect); Parainfluenza Virus 3 Not Detected (Not Detect); Parainfluenza Virus 4 Not Detected (Not Detect); Respiratory Syncytial Virus Not Detected (Not Detect); SARS-CoV-2 Not Detected (Not Detect)
[2021-09-05] MEDS ORDERED: 0.9 % Sodium Chloride 250 ML IVC PRN (07:11)
[2021-09-05] MEDS: Pantoprazole 40 MG VIAL IVP SCH (08:05)
[2021-09-05] MEDS: Chlorhexidine Rinse 15 ML MOUTHWASH MM SCH ×2 (08:05→19:51)
[2021-09-05] MEDS: levETIRAcetam 250 MG TABLET PO SCH ×2 (08:06→19:51)
[2021-09-05] MEDS: Aspirin Enteric Coated 81 MG Tablet PO SCH (08:06)
[2021-09-05] MEDS: carvediloL 6.25 MG TABLET PO SCH ×2 (08:08→17:09)
[2021-09-05] MEDS ORDERED: *HR* Heparin 10,000 UNIT/10 ML VIAL IV PRN (09:24)
[2021-09-05] MEDS: Norepinephrine 4 MG/254 ML IV.SOLN IVC SCH (17:09)
[2021-09-06] MEDS: FentaNYL (PF) 1,000 MCG/100 ML IV.SOLN IVC SCH ×5 (02:00→19:52)
[2021-09-06] MEDS: Artificial Tears SOLN 15 ML BOTTLE BOTH EYES SCH ×6 (02:59→23:10)
[2021-09-06 03:23] LABS: Basophils % 0.1 %; Hematocrit 29.6 % (37.5-50.1); Hemoglobin 9.1 g/dL (12.9-16.9); Immature Granulocytes % 0.2 % (0-4); Lymphocytes # 0.9 K/mcL (0.6-4.6); Lymphocytes % 10.4 %; Mean Corpuscular HGB Conc 30.7 g/dL (31.6-35.5); Mean Corpuscular Hemoglobin 25.3 pg (28.0-33.3); Mean Corpuscular Volume 82.2 fL (83.0-100.0); Mean Platelet Volume 10.3 fL (9.4-12.4); Monocytes # 0.7 K/mcL (0.0-1.3); Monocytes % 8.2 %; Neutrophils # 6.7 K/mcL (1.6-8.9); Platelet Count 293 K/mcL (140-400); Red Cell Distribution Width 17.2 % (11.5-14.5); Segmented Neutrophils % 81.1 %; White Blood Count 8.3 K/mcL (4.3-11.1)
[2021-09-06 03:41] LABS: BUN/Creatinine Ratio 61 (6-26); Blood Urea Nitrogen 83 mg/dL (6-20); Calcium 9.4 mg/dL (8.6-10.3); Carbon Dioxide 33 mEq/L (23-29); Chloride 102 mEq/L (98-107); Glucose 149 mg/dL (70-105); Osmolality,Calculated 326 (280-300); Sodium 144 mEq/L (136-145); eGFR For African Americans > 60 (> 60); eGFR For Non-African Americans 54 (> 60)
[2021-09-06] MEDS: Dexmedetomidine HCl 400 MCG/100 ML MLS IVC SCH ×5 (03:52→23:08)
[2021-09-06] MEDS: Insulin LISPRO 300 UNITS/3 ML VIAL SUBQ SCH ×6 (03:52→23:09)
[2021-09-06 04:13] LABS: ABG Base Excess 8 mEq/L (-2 to 3); ABG HCO3 32 mEq/L (21-27); ABG Oxygen Saturation 98 % (95-98); ABG PCO2 43 mmHg (35-45); ABG PH 7.48 pH Units (7.32-7.45); ABG PO2 91 mmHg (85-104); ABG TCO2 34 mEq/L (20-26); Blood Gas VT 400 cc
[2021-09-06] MEDS: *HR* Heparin 5,000 UNIT/ML VIAL SQ SCH ×2 (05:10→17:05)
[2021-09-06] MEDS: Midazolam HCl 50 MG/50 ML IV.SOLN IVC SCH ×3 (05:14→21:10)
[2021-09-06 05:59] LABS: Magnesium 2.1 mg/dL (1.6-2.6); Phosphorous 4.6 mg/dL (2.7-4.5)
[2021-09-06 06:03] LABS: VBG Ionized Calcium 1.07 mmol/L (1.15-1.35)
[2021-09-06] MEDS: carvediloL 6.25 MG TABLET PO SCH ×2 (08:01→16:46)
[2021-09-06] MEDS: Pantoprazole 40 MG VIAL IVP SCH (08:02)
[2021-09-06] MEDS: Aspirin Enteric Coated 81 MG Tablet PO SCH (08:02)
[2021-09-06] MEDS: levETIRAcetam 250 MG TABLET PO SCH ×2 (08:02→20:00)
[2021-09-06] MEDS: Chlorhexidine Rinse 15 ML MOUTHWASH MM SCH ×2 (08:02→20:00)
[2021-09-06] MEDS: Norepinephrine 4 MG/254 ML IV.SOLN IVC SCH ×2 (08:03→19:21)
[2021-09-06] MEDS: Furosemide 240 MG in D5% in Water 96 ML IVC SCH (09:55)
[2021-09-07] MEDS: FentaNYL (PF) 1,000 MCG/100 ML IV.SOLN IVC SCH ×3 (00:08→16:39)
[2021-09-07] MEDS: Dexmedetomidine HCl 400 MCG/100 ML MLS IVC SCH ×4 (02:05→21:50)
[2021-09-07 03:16] LABS: ABG Ionized Calcium 1.12 mmol/L (1.15-1.35)
[2021-09-07] MEDS: Insulin LISPRO 300 UNITS/3 ML VIAL SUBQ SCH ×5 (03:18→21:41)
[2021-09-07] MEDS: Artificial Tears SOLN 15 ML BOTTLE BOTH EYES SCH ×5 (03:18→21:40)
[2021-09-07 03:19] LABS: Basophils % 0.3 %; Eosinophils % 0.1 %; Hematocrit 29.4 % (37.5-50.1); Hemoglobin 8.7 g/dL (12.9-16.9); Immature Granulocytes % 0.5 % (0-4); Lymphocytes # 0.6 K/mcL (0.6-4.6); Lymphocytes % 7.2 %; Mean Corpuscular HGB Conc 29.6 g/dL (31.6-35.5); Mean Corpuscular Volume 84.5 fL (83.0-100.0); Mean Platelet Volume 9.7 fL (9.4-12.4); Monocytes # 0.9 K/mcL (0.0-1.3); Monocytes % 11.5 %; Neutrophils # 6.4 K/mcL (1.6-8.9); Platelet Count 270 K/mcL (140-400); Red Blood Count 3.48 M/mcL (4.19-5.50); Red Cell Distribution Width 17.2 % (11.5-14.5); Segmented Neutrophils % 80.4 %; White Blood Count 7.9 K/mcL (4.3-11.1)
[2021-09-07] MEDS: Furosemide 240 MG in D5% in Water 96 ML IVC SCH (03:20)
[2021-09-07 03:50] LABS: Alanine Aminotransferase 10 Units/L (7-52); Albumin 3.8 g/dL (3.5-5.7); Albumin/Globulin Ratio 1.7 (1.1-2.2); Alkaline Phosphatase 76 Units/L (34-104); Aspartate Amino Transferase 11 Units/L (13-39); BUN/Creatinine Ratio 65 (6-26); Bilirubin,Total 0.9 mg/dL (0.3-1.0); Blood Urea Nitrogen 80 mg/dL (6-20); Calcium 9.3 mg/dL (8.6-10.3); Carbon Dioxide 34 mEq/L (23-29); Chloride 100 mEq/L (98-107); Globulin 2.3 g/dL (2.4-3.5); Glucose 182 mg/dL (70-105); Magnesium 1.8 mg/dL (1.6-2.6); Osmolality,Calculated 327 (280-300); Phosphorous 4.5 mg/dL (2.7-4.5); Potassium 3.4 mEq/L (3.5-5.1); Sodium 144 mEq/L (136-145); Total Protein 6.1 g/dL (6.4-8.9); eGFR For African Americans > 60 (> 60); eGFR For Non-African Americans > 60 (> 60)
[2021-09-07 04:01] LABS: ABG Base Excess 9 mEq/L (-2 to 3); ABG HCO3 35 mEq/L (21-27); ABG Oxygen Saturation 98 % (95-98); ABG PCO2 54 mmHg (35-45); ABG PH 7.41 pH Units (7.32-7.45); ABG PO2 107 mmHg (85-104); ABG TCO2 36 mEq/L (20-26); Blood Gas VT 400 cc
[2021-09-07] MEDS: Midazolam HCl 50 MG/50 ML IV.SOLN IVC SCH ×2 (04:06→21:40)
[2021-09-07] MEDS ORDERED: Potassium Chloride Elixir 20 MEQ/15 ML UDC GTUBE ONE (04:25)
[2021-09-07] MEDS: *HR* Heparin 5,000 UNIT/ML VIAL SQ SCH ×2 (05:03→16:37)
[2021-09-07] MEDS: Aspirin Enteric Coated 81 MG Tablet PO SCH (08:35)
[2021-09-07] MEDS: Pantoprazole 40 MG VIAL IVP SCH (08:35)
[2021-09-07] MEDS: carvediloL 6.25 MG TABLET PO SCH ×2 (08:35→16:37)
[2021-09-07] MEDS: Chlorhexidine Rinse 15 ML MOUTHWASH MM SCH ×2 (08:35→21:46)
[2021-09-07] MEDS: levETIRAcetam 250 MG TABLET PO SCH ×2 (08:35→21:47)
[2021-09-07] MEDS: *HR* HYDROcodone/Acet 5/325 mg TABLET PO PRN (09:17)
[2021-09-07] MEDS: Acetaminophen 325 MG TABLET PO PRN (09:17)
[2021-09-07] MEDS ORDERED: Furosemide 240 MG in D5% in Water 96 ML IVC SCH (14:33)
[2021-09-08] MEDS: Insulin LISPRO 300 UNITS/3 ML VIAL SUBQ SCH ×7 (00:07→23:18)
[2021-09-08] MEDS: Artificial Tears SOLN 15 ML BOTTLE BOTH EYES SCH ×7 (00:07→23:20)
[2021-09-08] MEDS ORDERED: Albumin Human 5% 12.5 GM/250 ML IV.SOLN IVPB ONE (02:01)
[2021-09-08 04:17] LABS: ABG Base Excess 14 mEq/L (-2 to 3); ABG HCO3 38 mEq/L (21-27); ABG Oxygen Saturation 98 % (95-98); ABG PCO2 49 mmHg (35-45); ABG PO2 90 mmHg (85-104); ABG TCO2 40 mEq/L (20-26); Blood Gas Modality AF; Blood Gas VT 400 cc
[2021-09-08 04:43] LABS: VBG Ionized Calcium 1.13 mmol/L (1.15-1.35)
[2021-09-08 04:53] LABS: Hematocrit 32.3 % (37.5-50.1); Hemoglobin 9.5 g/dL (12.9-16.9); Mean Corpuscular HGB Conc 29.4 g/dL (31.6-35.5); Mean Corpuscular Hemoglobin 24.7 pg (28.0-33.3); Mean Corpuscular Volume 84.1 fL (83.0-100.0); Mean Platelet Volume 10.2 fL (9.4-12.4); Platelet Count 272 K/mcL (140-400); Red Blood Count 3.84 M/mcL (4.19-5.50); Red Cell Distribution Width 17.2 % (11.5-14.5)
[2021-09-08 04:54] LABS: White Blood Count 1.9 K/mcL (4.3-11.1)
[2021-09-08 05:07] LABS: Magnesium 1.7 mg/dL (1.6-2.6); Phosphorous 3.4 mg/dL (2.7-4.5)
[2021-09-08 05:08] LABS: BUN/Creatinine Ratio 68 (6-26); Blood Urea Nitrogen 71 mg/dL (6-20); Calcium 9.6 mg/dL (8.6-10.3); Carbon Dioxide 39 mEq/L (23-29); Chloride 101 mEq/L (98-107); Glucose 132 mg/dL (70-105); Osmolality,Calculated 329 (280-300); Potassium 3.2 mEq/L (3.5-5.1); Sodium 148 mEq/L (136-145); eGFR For African Americans > 60 (> 60); eGFR For Non-African Americans > 60 (> 60)
[2021-09-08] MEDS: *HR* Heparin 5,000 UNIT/ML VIAL SQ SCH ×2 (05:50→17:57)
[2021-09-08] MEDS: Midazolam HCl 50 MG/50 ML IV.SOLN IVC SCH ×2 (06:00→20:25)
[2021-09-08] MEDS: Chlorhexidine Rinse 15 ML MOUTHWASH MM SCH ×2 (07:48→19:45)
[2021-09-08] MEDS: carvediloL 6.25 MG TABLET PO SCH ×2 (07:48→16:01)
[2021-09-08] MEDS: Pantoprazole 40 MG VIAL IVP SCH (07:49)
[2021-09-08] MEDS: Aspirin Enteric Coated 81 MG Tablet PO SCH (08:17)
[2021-09-08] MEDS: levETIRAcetam 500 MG/5 ML UDC PO SCH ×2 (09:13→20:26)
[2021-09-08] MEDS: Aspirin 81 MG TAB.CHEW PO SCH (09:13)
[2021-09-08 10:13] LABS: Hematocrit 28.8 % (37.5-50.1); Hemoglobin 8.6 g/dL (12.9-16.9); Mean Corpuscular HGB Conc 29.9 g/dL (31.6-35.5); Mean Corpuscular Hemoglobin 25.1 pg (28.0-33.3); Mean Corpuscular Volume 84.2 fL (83.0-100.0); Mean Platelet Volume 9.7 fL (9.4-12.4); Platelet Count 233 K/mcL (140-400); Red Blood Count 3.42 M/mcL (4.19-5.50); Red Cell Distribution Width 17.1 % (11.5-14.5); White Blood Count 2.1 K/mcL (4.3-11.1)
[2021-09-08] MEDS: FentaNYL (PF) 1,000 MCG/100 ML IV.SOLN IVC SCH ×2 (10:16→17:33)
[2021-09-08 12:36] LABS: Magnesium 1.8 mg/dL (1.6-2.6); Potassium 3.4 mEq/L (3.5-5.1)
[2021-09-08] MEDS: lisinopriL 5 MG TABLET PO SCH (13:07)
[2021-09-08] MEDS ORDERED: Perflutren Lipid Microsphere 1.3 ML in 0.9 % Sodium Chloride 8.7 ML IVP PRN (14:51)
[2021-09-08] MEDS: Acetaminophen 325 MG TABLET PO PRN (16:11)
[2021-09-09] MEDS: FentaNYL (PF) 1,000 MCG/100 ML IV.SOLN IVC SCH ×3 (00:55→19:15)
[2021-09-09 03:54] LABS: VBG Ionized Calcium 1.07 mmol/L (1.15-1.35)
[2021-09-09 03:54] LABS: Basophils % 0.2 %; Eosinophils % 0.3 %; Hematocrit 26.5 % (37.5-50.1); Hemoglobin 7.8 g/dL (12.9-16.9); Immature Granulocytes % 0.5 % (0-4); Lymphocytes # 0.8 K/mcL (0.6-4.6); Lymphocytes % 12.9 %; Mean Corpuscular HGB Conc 29.4 g/dL (31.6-35.5); Mean Corpuscular Hemoglobin 25.1 pg (28.0-33.3); Mean Corpuscular Volume 85.2 fL (83.0-100.0); Mean Platelet Volume 10.3 fL (9.4-12.4); Monocytes # 1.2 K/mcL (0.0-1.3); Neutrophils # 4.1 K/mcL (1.6-8.9); Platelet Count 230 K/mcL (140-400); Red Blood Count 3.11 M/mcL (4.19-5.50); Red Cell Distribution Width 17.5 % (11.5-14.5); Segmented Neutrophils % 67.1 %
[2021-09-09] MEDS: Artificial Tears SOLN 15 ML BOTTLE BOTH EYES SCH ×6 (04:00→23:14)
[2021-09-09 04:14] LABS: BUN/Creatinine Ratio 55 (6-26); Blood Urea Nitrogen 62 mg/dL (6-20); Carbon Dioxide 38 mEq/L (23-29); Chloride 103 mEq/L (98-107); Glucose 108 mg/dL (70-105); Magnesium 1.8 mg/dL (1.6-2.6); Osmolality,Calculated 328 (280-300); Phosphorous 2.9 mg/dL (2.7-4.5); Potassium 2.8 mEq/L (3.5-5.1); Sodium 150 mEq/L (136-145); eGFR For African Americans > 60 (> 60); eGFR For Non-African Americans > 60 (> 60)
[2021-09-09 04:39] LABS: White Blood Count 6.1 K/mcL (4.3-11.1)
[2021-09-09 04:42] LABS: ABG Base Excess 9 mEq/L (-2 to 3); ABG HCO3 34 mEq/L (21-27); ABG Oxygen Saturation 96 % (95-98); ABG PCO2 50 mmHg (35-45); ABG PH 7.44 pH Units (7.32-7.45); ABG PO2 77 mmHg (85-104); ABG TCO2 36 mEq/L (20-26); Blood Gas VT 400 cc
[2021-09-09 04:46] LABS: Anisocytosis 1+ (Not Present); Platelet Estimate Normal (Normal)
[2021-09-09] MEDS: Insulin LISPRO 300 UNITS/3 ML VIAL SUBQ SCH ×6 (04:56→23:14)
[2021-09-09] MEDS ORDERED: Calcium Gluconate 1gm/50mL 1 GM/50 ML BAG IVPB ONE (05:25)
[2021-09-09] MEDS: *HR* Heparin 5,000 UNIT/ML VIAL SQ SCH ×2 (05:55→18:07)
[2021-09-09] MEDS: Pantoprazole 40 MG VIAL IVP SCH (08:27)
[2021-09-09] MEDS: Chlorhexidine Rinse 15 ML MOUTHWASH MM SCH ×2 (08:27→21:15)
[2021-09-09] MEDS: carvediloL 6.25 MG TABLET PO SCH ×2 (08:27→16:09)
[2021-09-09] MEDS: levETIRAcetam 500 MG/5 ML UDC PO SCH ×2 (08:27→21:15)
[2021-09-09] MEDS: lisinopriL 5 MG TABLET PO SCH (08:28)
[2021-09-09] MEDS: Aspirin 81 MG TAB.CHEW PO SCH (08:28)
[2021-09-09] MEDS ORDERED: Artificial Tears SOLN 15 ML BOTTLE BOTH EYES PRN (10:10)
[2021-09-09] MEDS: Acetaminophen 325 MG TABLET PO PRN (11:40)
[2021-09-09] MEDS: Midazolam HCl 50 MG/50 ML IV.SOLN IVC SCH ×2 (11:40→20:01)
[2021-09-09 11:47] LABS: VBG Ionized Calcium 1.11 mmol/L (1.15-1.35)
[2021-09-09] MEDS ORDERED: Artificial Tears SOLN 15 ML BOTTLE BOTH EYES SCH (12:00)
[2021-09-09 12:03] LABS: BUN/Creatinine Ratio 54 (6-26); Blood Urea Nitrogen 59 mg/dL (6-20); Calcium 9.2 mg/dL (8.6-10.3); Carbon Dioxide 39 mEq/L (23-29); Chloride 104 mEq/L (98-107); Glucose 102 mg/dL (70-105); Osmolality,Calculated 327 (280-300); Potassium 3.4 mEq/L (3.5-5.1); Sodium 150 mEq/L (136-145); eGFR For African Americans > 60 (> 60); eGFR For Non-African Americans > 60 (> 60)
[2021-09-09] MEDS ORDERED: Potassium Phosphate 44 MEQ in 0.9 % Sodium Chloride 250 ML IVPB ONE (13:15)
[2021-09-09] MEDS: Norepinephrine 4 MG/254 ML IV.SOLN IVC SCH (20:00)
[2021-09-09] MEDS ORDERED: Chlorhexidine Rinse 15 ML MOUTHWASH MM SCH (21:00)
[2021-09-09] MEDS: QUEtiapine Fumarate 25 MG TABLET PO SCH (21:15)
[2021-09-10] MEDS: Artificial Tears SOLN 15 ML BOTTLE BOTH EYES SCH ×5 (03:47→20:36)
[2021-09-10] MEDS: Insulin LISPRO 300 UNITS/3 ML VIAL SUBQ SCH ×5 (03:47→21:08)
[2021-09-10] MEDS: FentaNYL (PF) 1,000 MCG/100 ML IV.SOLN IVC SCH (04:00)
[2021-09-10 04:01] LABS: ABG Base Excess 11 mEq/L (-2 to 3); ABG HCO3 37 mEq/L (21-27); ABG Oxygen Saturation 95 % (95-98); ABG PCO2 56 mmHg (35-45); ABG PH 7.43 pH Units (7.32-7.45); ABG PO2 78 mmHg (85-104); ABG TCO2 38 mEq/L (20-26); Blood Gas VT 400 cc
[2021-09-10 04:06] LABS: BUN/Creatinine Ratio 52 (6-26); Blood Urea Nitrogen 54 mg/dL (6-20); Calcium 8.7 mg/dL (8.6-10.3); Carbon Dioxide 38 mEq/L (23-29); Chloride 105 mEq/L (98-107); Glucose 141 mg/dL (70-105); Magnesium 1.9 mg/dL (1.6-2.6); Osmolality,Calculated 329 (280-300); Phosphorous 3.9 mg/dL (2.7-4.5); Potassium 3.3 mEq/L (3.5-5.1); Sodium 151 mEq/L (136-145); eGFR For African Americans > 60 (> 60); eGFR For Non-African Americans > 60 (> 60)
[2021-09-10] MEDS ORDERED: Potassium Chloride Elixir 20 MEQ/15 ML UDC GTUBE ONE (04:42)
[2021-09-10] MEDS: *HR* Heparin 5,000 UNIT/ML VIAL SQ SCH ×2 (05:08→17:57)
[2021-09-10 06:49] LABS: Basophils % 0.1 %; Eosinophils % 0.2 %; Hematocrit 26.4 % (37.5-50.1); Hemoglobin 7.7 g/dL (12.9-16.9); Immature Granulocytes % 0.5 % (0-4); Lymphocytes % 10.9 %; Mean Corpuscular HGB Conc 29.2 g/dL (31.6-35.5); Mean Corpuscular Hemoglobin 24.9 pg (28.0-33.3); Mean Corpuscular Volume 85.4 fL (83.0-100.0); Monocytes # 1.1 K/mcL (0.0-1.3); Monocytes % 12.4 %; Neutrophils # 6.6 K/mcL (1.6-8.9); Platelet Count 214 K/mcL (140-400); Red Blood Count 3.09 M/mcL (4.19-5.50); Red Cell Distribution Width 17.5 % (11.5-14.5); Segmented Neutrophils % 75.9 %; White Blood Count 8.7 K/mcL (4.3-11.1)
[2021-09-10 08:51] LABS: Anisocytosis 1+ (Not Present); Platelet Estimate Normal (Normal)
[2021-09-10] MEDS: Pantoprazole 40 MG VIAL IVP SCH (08:52)
[2021-09-10] MEDS: Aspirin 81 MG TAB.CHEW PO SCH (08:56)
[2021-09-10] MEDS: carvediloL 6.25 MG TABLET PO SCH ×2 (08:57→18:01)
[2021-09-10] MEDS: levETIRAcetam 500 MG/5 ML UDC PO SCH ×2 (09:01→20:36)
[2021-09-10] MEDS: Chlorhexidine Rinse 15 ML MOUTHWASH MM SCH ×2 (09:07→20:36)
[2021-09-10 10:51] LABS: Magnesium 2.1 mg/dL (1.6-2.6); Potassium 3.8 mEq/L (3.5-5.1)
[2021-09-10] MEDS: Dexmedetomidine HCl 400 MCG/100 ML MLS IVC SCH (11:53)
[2021-09-10] MEDS ORDERED: hydroCHLOROthiazide 25 MG TABLET PO ONE (13:10)
[2021-09-10 16:31] LABS: Red Cell Distribution Width 17.5 % (11.5-14.5)
[2021-09-10 16:32] LABS: Hemoglobin 7.5 g/dL (12.9-16.9); Mean Corpuscular HGB Conc 28.8 g/dL (31.6-35.5); Mean Corpuscular Hemoglobin 24.8 pg (28.0-33.3); Mean Corpuscular Volume 86.1 fL (83.0-100.0); Mean Platelet Volume 10.4 fL (9.4-12.4); Platelet Count 219 K/mcL (140-400); Red Blood Count 3.02 M/mcL (4.19-5.50); White Blood Count 8.3 K/mcL (4.3-11.1)
[2021-09-10 16:42] LABS: INR 1.3
[2021-09-10 16:44] LABS: Activated Partial Thrombo Time 30.8 Seconds (26.0-36.0)
[2021-09-10] MEDS: Norepinephrine 4 MG/254 ML IV.SOLN IVC SCH (18:00)
[2021-09-10] MEDS: QUEtiapine Fumarate 25 MG TABLET PO SCH (20:36)
[2021-09-11] MEDS: Norepinephrine 4 MG/254 ML IV.SOLN IVC SCH (00:07)
[2021-09-11] MEDS: Midazolam HCl 50 MG/50 ML IV.SOLN IVC SCH ×2 (00:08→05:15)
[2021-09-11] MEDS: Artificial Tears SOLN 15 ML BOTTLE BOTH EYES SCH ×6 (00:09→21:47)
[2021-09-11] MEDS: Insulin LISPRO 300 UNITS/3 ML VIAL SUBQ SCH ×6 (00:09→21:35)
[2021-09-11] MEDS: FentaNYL (PF) 1,000 MCG/100 ML IV.SOLN IVC SCH (01:18)
[2021-09-11 03:55] LABS: ABG Base Excess 9 mEq/L (-2 to 3); ABG HCO3 36 mEq/L (21-27); ABG Oxygen Saturation 97 % (95-98); ABG PCO2 65 mmHg (35-45); ABG PH 7.36 pH Units (7.32-7.45); ABG PO2 94 mmHg (85-104); ABG TCO2 38 mEq/L (20-26); Blood Gas VT 400 cc
[2021-09-11 03:55] LABS: VBG Ionized Calcium 1.08 mmol/L (1.15-1.35)
[2021-09-11 03:57] LABS: Basophils % 0.2 %
[2021-09-11 03:58] LABS: Eosinophils % 0.4 %; Hematocrit 27.4 % (37.5-50.1); Hemoglobin 7.9 g/dL (12.9-16.9); Immature Granulocytes % 0.3 % (0-4); Lymphocytes # 0.9 K/mcL (0.6-4.6); Lymphocytes % 8.1 %; Mean Corpuscular HGB Conc 28.8 g/dL (31.6-35.5); Mean Corpuscular Hemoglobin 25.1 pg (28.0-33.3); Mean Platelet Volume 10.5 fL (9.4-12.4); Monocytes # 1.2 K/mcL (0.0-1.3); Platelet Count 230 K/mcL (140-400); Red Blood Count 3.15 M/mcL (4.19-5.50); Red Cell Distribution Width 17.5 % (11.5-14.5); White Blood Count 10.7 K/mcL (4.3-11.1)
[2021-09-11 04:01] LABS: Neutrophils # 8.6 K/mcL (1.6-8.9)
[2021-09-11 04:13] LABS: BUN/Creatinine Ratio 51 (6-26); Blood Urea Nitrogen 58 mg/dL (6-20); Calcium 8.1 mg/dL (8.6-10.3); Carbon Dioxide 39 mEq/L (23-29); Chloride 104 mEq/L (98-107); Glucose 163 mg/dL (70-105); Osmolality,Calculated 324 (280-300); Phosphorous 3.6 mg/dL (2.7-4.5); Potassium 4.5 mEq/L (3.5-5.1); Sodium 147 mEq/L (136-145); eGFR For African Americans > 60 (> 60); eGFR For Non-African Americans > 60 (> 60)
[2021-09-11] MEDS ORDERED: Calcium Gluconate 1gm/50mL 1 GM/50 ML BAG IVPB ONE (04:24)
[2021-09-11 04:38] LABS: Anisocytosis 1+ (Not Present); Hypochromasia Present (Not Present); Platelet Estimate Normal (Normal)
[2021-09-11] MEDS: *HR* Heparin 5,000 UNIT/ML VIAL SQ SCH ×2 (06:10→17:56)
[2021-09-11] MEDS: Pantoprazole 40 MG VIAL IVP SCH (09:09)
[2021-09-11] MEDS: Aspirin 81 MG TAB.CHEW PO SCH (09:11)
[2021-09-11] MEDS: carvediloL 6.25 MG TABLET PO SCH ×2 (09:12→17:59)
[2021-09-11] MEDS: levETIRAcetam 500 MG/5 ML UDC PO SCH ×2 (09:13→21:47)
[2021-09-11] MEDS: Dexmedetomidine HCl 400 MCG/100 ML MLS IVC SCH (09:54)
[2021-09-11] MEDS: Chlorhexidine Rinse 15 ML MOUTHWASH MM SCH ×2 (09:54→21:47)
[2021-09-11 18:06] LABS: VBG Ionized Calcium 1.08 mmol/L (1.15-1.35)
[2021-09-11] MEDS: QUEtiapine Fumarate 25 MG TABLET PO SCH (21:47)
[2021-09-11 23:51] LABS: ABG Base Excess 9 mEq/L (-2 to 3); ABG HCO3 34 mEq/L (21-27); ABG Oxygen Saturation 89 % (95-98); ABG PCO2 52 mmHg (35-45); ABG PH 7.43 pH Units (7.32-7.45); ABG PO2 57 mmHg (85-104); ABG TCO2 36 mEq/L (20-26)
[2021-09-12] MEDS: Insulin LISPRO 300 UNITS/3 ML VIAL SUBQ SCH ×6 (00:23→20:24)
[2021-09-12] MEDS: Artificial Tears SOLN 15 ML BOTTLE BOTH EYES SCH ×6 (00:23→20:24)
[2021-09-12 04:07] LABS: VBG Ionized Calcium 1.11 mmol/L (1.15-1.35)
[2021-09-12 04:10] LABS: Basophils % 0.1 %; Hematocrit 25.1 % (37.5-50.1); Hemoglobin 7.1 g/dL (12.9-16.9); Mean Corpuscular HGB Conc 28.3 g/dL (31.6-35.5); Mean Corpuscular Hemoglobin 24.9 pg (28.0-33.3); Mean Corpuscular Volume 88.1 fL (83.0-100.0); Red Blood Count 2.85 M/mcL (4.19-5.50); Red Cell Distribution Width 17.2 % (11.5-14.5)
[2021-09-12 04:11] LABS: Immature Granulocytes % 0.3 % (0-4); Lymphocytes # 0.8 K/mcL (0.6-4.6); Lymphocytes % 5.4 %; Mean Platelet Volume 10.3 fL (9.4-12.4); Monocytes % 6.7 %; Neutrophils # 12.9 K/mcL (1.6-8.9); Platelet Count 214 K/mcL (140-400); Segmented Neutrophils % 87.5 %; White Blood Count 14.7 K/mcL (4.3-11.1)
[2021-09-12 04:27] LABS: BUN/Creatinine Ratio 50 (6-26); Blood Urea Nitrogen 59 mg/dL (6-20); Calcium 8.6 mg/dL (8.6-10.3); Carbon Dioxide 37 mEq/L (23-29); Chloride 103 mEq/L (98-107); Glucose 173 mg/dL (70-105); Osmolality,Calculated 323 (280-300); Phosphorous 3.5 mg/dL (2.7-4.5); Potassium 4.1 mEq/L (3.5-5.1); Sodium 146 mEq/L (136-145); eGFR For African Americans > 60 (> 60); eGFR For Non-African Americans > 60 (> 60)
[2021-09-12] MEDS: *HR* Heparin 5,000 UNIT/ML VIAL SQ SCH ×2 (05:22→17:33)
[2021-09-12] MEDS: carvediloL 6.25 MG TABLET PO SCH ×2 (10:01→17:34)
[2021-09-12] MEDS: Aspirin 81 MG TAB.CHEW PO SCH (10:02)
[2021-09-12] MEDS: Pantoprazole 40 MG VIAL IVP SCH (10:09)
[2021-09-12] MEDS: Chlorhexidine Rinse 15 ML MOUTHWASH MM SCH ×2 (10:09→21:18)
[2021-09-12] MEDS: Midazolam HCl 50 MG/50 ML IV.SOLN IVC SCH (11:31)
[2021-09-12] MEDS: Norepinephrine 4 MG/254 ML IV.SOLN IVC SCH ×2 (11:32→21:19)
[2021-09-12] MEDS: Dexmedetomidine HCl 400 MCG/100 ML MLS IVC SCH (11:32)
[2021-09-12] MEDS: Acetylcysteine 10% 2 ML INHSOL IH SCH ×2 (13:23→23:28)
[2021-09-12] MEDS ORDERED: Haloperidol Lactate 5 MG/ML VIAL IVP PRN (16:43)
[2021-09-12] MEDS: Nicotine 21 MG PATCH.TD24 TD SCH (17:30)
[2021-09-12] MEDS: QUEtiapine Fumarate 25 MG TABLET PO SCH (21:19)
[2021-09-12] MEDS: Melatonin 3 MG TABLET PO PRN (21:20)
[2021-09-12] MEDS: Ipratropium/Albuterol Neb 3 ML IH SCH (23:28)
[2021-09-13] MEDS: Midazolam HCl 50 MG/50 ML IV.SOLN IVC SCH ×2 (00:02→12:23)
[2021-09-13] MEDS: Artificial Tears SOLN 15 ML BOTTLE BOTH EYES SCH ×6 (00:02→21:24)
[2021-09-13] MEDS: Insulin LISPRO 300 UNITS/3 ML VIAL SUBQ SCH ×6 (03:52→21:09)
[2021-09-13 04:07] LABS: Basophils % 0.1 %
[2021-09-13 04:09] LABS: Hemoglobin 7.6 g/dL (12.9-16.9); Immature Granulocytes % 0.9 % (0-4); Lymphocytes # 0.8 K/mcL (0.6-4.6); Lymphocytes % 5.5 %; Mean Corpuscular HGB Conc 28.1 g/dL (31.6-35.5); Mean Corpuscular Hemoglobin 24.7 pg (28.0-33.3); Mean Corpuscular Volume 87.7 fL (83.0-100.0); Mean Platelet Volume 10.5 fL (9.4-12.4); Monocytes # 0.8 K/mcL (0.0-1.3); Monocytes % 5.4 %; Neutrophils # 13.2 K/mcL (1.6-8.9); Platelet Count 258 K/mcL (140-400); Red Blood Count 3.08 M/mcL (4.19-5.50); Red Cell Distribution Width 17.5 % (11.5-14.5); Segmented Neutrophils % 88.1 %
[2021-09-13 04:13] LABS: VBG Ionized Calcium 1.12 mmol/L (1.15-1.35)
[2021-09-13 04:26] LABS: BUN/Creatinine Ratio 52 (6-26); Blood Urea Nitrogen 57 mg/dL (6-20); Carbon Dioxide 35 mEq/L (23-29); Chloride 106 mEq/L (98-107); Glucose 122 mg/dL (70-105); Osmolality,Calculated 327 (280-300); Phosphorous 3.3 mg/dL (2.7-4.5); Potassium 3.7 mEq/L (3.5-5.1); Sodium 150 mEq/L (136-145); eGFR For African Americans > 60 (> 60); eGFR For Non-African Americans > 60 (> 60)
[2021-09-13] MEDS: *HR* Heparin 5,000 UNIT/ML VIAL SQ SCH ×2 (06:35→18:29)
[2021-09-13] MEDS: Dexmedetomidine HCl 400 MCG/100 ML MLS IVC SCH (06:36)
[2021-09-13] MEDS ORDERED: Calcium Gluconate 1gm/50mL 1 GM/50 ML BAG IVPB ONE (06:55)
[2021-09-13] MEDS: Ipratropium/Albuterol Neb 3 ML IH SCH ×2 (09:17→21:25)
[2021-09-13] MEDS: Acetylcysteine 10% 2 ML INHSOL IH SCH ×2 (09:18→21:25)
[2021-09-13] MEDS ORDERED: QUEtiapine Fumarate 25 MG TABLET PO SCH (10:00)
[2021-09-13] MEDS: carvediloL 6.25 MG TABLET PO SCH (10:22)
[2021-09-13] MEDS: Aspirin 81 MG TAB.CHEW PO SCH (10:25)
[2021-09-13] MEDS: Chlorhexidine Rinse 15 ML MOUTHWASH MM SCH ×2 (10:26→21:11)
[2021-09-13] MEDS: Nicotine 21 MG PATCH.TD24 TD SCH (10:30)
[2021-09-13] MEDS: Pantoprazole 40 MG VIAL IVP SCH (10:38)
[2021-09-13] MEDS ORDERED: D5% in Water 1,000 ML IVC SCH (12:45)
[2021-09-13] MEDS: Norepinephrine 4 MG/254 ML IV.SOLN IVC SCH (15:36)
[2021-09-13] MEDS ORDERED: *HR* Dextrose 50 % in Water (Syg) 50 ML SYRINGE IVP PRN (17:08)
[2021-09-13] MEDS ORDERED: D5% in Water 1,000 ML IVC PRN (17:08)
[2021-09-13] MEDS ORDERED: Haloperidol Lactate 5 MG/ML VIAL IVP PRN (17:08)
[2021-09-13] MEDS ORDERED: MOM Conc 10 ML UD.LIQ PO PRN (17:08)
[2021-09-13] MEDS ORDERED: Naloxone 0.4 MG/ML INJ IVP PRN (17:08)
[2021-09-13] MEDS ORDERED: Dextrose 4 GM Chewable Tablets PO PRN ×2 (17:08)
[2021-09-13] MEDS ORDERED: *HR* Heparin 10,000 UNIT/10 ML VIAL IV PRN (17:08)
[2021-09-13] MEDS ORDERED: Artificial Tears SOLN 15 ML BOTTLE BOTH EYES PRN (17:08)
[2021-09-13] MEDS: levETIRAcetam 250 MG TABLET PO SCH (18:29)
[2021-09-14] MEDS: Insulin LISPRO 300 UNITS/3 ML VIAL SUBQ SCH ×6 (02:03→20:30)
[2021-09-14] MEDS: Artificial Tears SOLN 15 ML BOTTLE BOTH EYES SCH ×6 (02:08→20:30)
[2021-09-14 04:07] LABS: Hematocrit 26.7 % (37.5-50.1); Hemoglobin 7.6 g/dL (12.9-16.9); Mean Corpuscular HGB Conc 28.5 g/dL (31.6-35.5); Mean Corpuscular Hemoglobin 24.4 pg (28.0-33.3); Mean Corpuscular Volume 85.6 fL (83.0-100.0); Mean Platelet Volume 10.4 fL (9.4-12.4); Platelet Count 323 K/mcL (140-400); Red Blood Count 3.12 M/mcL (4.19-5.50); Red Cell Distribution Width 17.3 % (11.5-14.5); White Blood Count 14.4 K/mcL (4.3-11.1)
[2021-09-14 04:25] LABS: BUN/Creatinine Ratio 53 (6-26); Blood Urea Nitrogen 60 mg/dL (6-20); Calcium 8.9 mg/dL (8.6-10.3); Carbon Dioxide 37 mEq/L (23-29); Chloride 107 mEq/L (98-107); Glucose 172 mg/dL (70-105); Osmolality,Calculated 333 (280-300); Potassium 3.4 mEq/L (3.5-5.1); Sodium 151 mEq/L (136-145); eGFR For African Americans > 60 (> 60); eGFR For Non-African Americans > 60 (> 60)
[2021-09-14] MEDS: *HR* Heparin 5,000 UNIT/ML VIAL SQ SCH ×2 (07:11→18:24)
[2021-09-14] MEDS: levETIRAcetam 250 MG TABLET PO SCH (07:11)
[2021-09-14] MEDS: Acetylcysteine 10% 2 ML INHSOL IH SCH ×2 (08:03→20:07)
[2021-09-14] MEDS: Ipratropium/Albuterol Neb 3 ML IH SCH ×2 (08:03→20:07)
[2021-09-14] MEDS: Aspirin 81 MG TAB.CHEW PO SCH ×2 (10:29→17:17)
[2021-09-14] MEDS: Chlorhexidine Rinse 15 ML MOUTHWASH MM SCH ×2 (10:30→21:00)
[2021-09-14] MEDS: carvediloL 6.25 MG TABLET PO SCH ×3 (10:30→17:17)
[2021-09-14] MEDS: Nicotine 21 MG PATCH.TD24 TD SCH (10:30)
[2021-09-14] MEDS ORDERED: Furosemide 40 MG/4 ML VIAL IVP ONE (10:32)
[2021-09-14] MEDS: Acetaminophen 325 MG TABLET PO PRN (10:42)
[2021-09-14] MEDS ORDERED: Acetaminophen IV 1,000 MG/100 ML BAG IVPB ONE (11:25)
[2021-09-14] MEDS ORDERED: *HR* HYDROmorphone (PF) 1 MG/ML SYRINGE IVP ONE (12:33)
[2021-09-14] MEDS: D5% in Water 1,000 ML IVC SCH (13:08)
[2021-09-15] MEDS: Insulin LISPRO 300 UNITS/3 ML VIAL SUBQ SCH ×6 (01:06→21:37)
[2021-09-15] MEDS: Artificial Tears SOLN 15 ML BOTTLE BOTH EYES SCH ×3 (01:07→08:11)
[2021-09-15] MEDS: *HR* Heparin 5,000 UNIT/ML VIAL SQ SCH ×2 (05:02→16:16)
[2021-09-15] MEDS: Ipratropium/Albuterol Neb 3 ML IH SCH ×2 (07:38→19:39)
[2021-09-15] MEDS: Acetylcysteine 10% 2 ML INHSOL IH SCH ×2 (07:38→19:39)
[2021-09-15] MEDS: Nicotine 21 MG PATCH.TD24 TD SCH (08:05)
[2021-09-15] MEDS: Chlorhexidine Rinse 15 ML MOUTHWASH MM SCH (08:11)
[2021-09-15] MEDS: carvediloL 6.25 MG TABLET PO SCH ×2 (08:11→16:16)
[2021-09-15] MEDS: Aspirin 81 MG TAB.CHEW PO SCH (08:25)
[2021-09-15 08:56] LABS: BUN/Creatinine Ratio 52 (6-26); Blood Urea Nitrogen 53 mg/dL (6-20); Calcium 9.3 mg/dL (8.6-10.3); Carbon Dioxide 36 mEq/L (23-29); Chloride 106 mEq/L (98-107); Glucose 202 mg/dL (70-105); Osmolality,Calculated 332 (280-300); Potassium 3.1 mEq/L (3.5-5.1); Sodium 151 mEq/L (136-145); eGFR For African Americans > 60 (> 60); eGFR For Non-African Americans > 60 (> 60)
[2021-09-15] MEDS ORDERED: Furosemide 40 MG/4 ML VIAL IVP ONE (09:46)
[2021-09-15] MEDS ORDERED: Potassium Chloride Elixir 20 MEQ/15 ML UDC PO ONE (09:46)
[2021-09-15] MEDS: D5% in Water 1,000 ML IVC SCH (11:02)
[2021-09-15] MEDS ORDERED: 0.9 % Sodium Chloride 250 ML ONE (11:07)
[2021-09-15] MEDS: Melatonin 3 MG TABLET PO PRN (21:42)
[2021-09-16] MEDS: Insulin LISPRO 300 UNITS/3 ML VIAL SUBQ SCH ×6 (00:47→22:34)
[2021-09-16] MEDS: D5% in Water 1,000 ML IVC SCH (06:32)
[2021-09-16] MEDS: *HR* Heparin 5,000 UNIT/ML VIAL SQ SCH ×2 (06:33→18:14)
[2021-09-16] MEDS: Ipratropium/Albuterol Neb 3 ML IH SCH ×2 (07:24→19:44)
[2021-09-16] MEDS: Acetylcysteine 10% 2 ML INHSOL IH SCH ×2 (07:24→19:43)
[2021-09-16 07:45] LABS: Lymphocytes % 7.9 %; Red Blood Count 2.78 M/mcL (4.19-5.50)
[2021-09-16 07:46] LABS: Basophils % 0.2 %; Hematocrit 24.2 % (37.5-50.1); Hemoglobin 6.8 g/dL (12.9-16.9); Immature Granulocytes % 0.4 % (0-4); Mean Corpuscular HGB Conc 28.1 g/dL (31.6-35.5); Mean Corpuscular Hemoglobin 24.5 pg (28.0-33.3); Mean Corpuscular Volume 87.1 fL (83.0-100.0); Mean Platelet Volume 10.8 fL (9.4-12.4); Monocytes # 0.8 K/mcL (0.0-1.3); Monocytes % 6.6 %; Neutrophils # 10.2 K/mcL (1.6-8.9); Platelet Count 278 K/mcL (140-400); Red Cell Distribution Width 17.5 % (11.5-14.5); Segmented Neutrophils % 84.9 %
[2021-09-16 08:00] LABS: BUN/Creatinine Ratio 47 (6-26); Blood Urea Nitrogen 43 mg/dL (6-20); Calcium 7.9 mg/dL (8.6-10.3); Carbon Dioxide 34 mEq/L (23-29); Chloride 109 mEq/L (98-107); Glucose 233 mg/dL (70-105); Osmolality,Calculated 324 (280-300); Potassium 2.9 mEq/L (3.5-5.1); Sodium 148 mEq/L (136-145); eGFR For African Americans > 60 (> 60); eGFR For Non-African Americans > 60 (> 60)
[2021-09-16 08:23] LABS: Hypochromasia Present (Not Present); Platelet Estimate Normal (Normal)
[2021-09-16] MEDS: Aspirin 81 MG TAB.CHEW PO SCH (08:52)
[2021-09-16] MEDS: carvediloL 6.25 MG TABLET PO SCH ×2 (08:52→18:13)
[2021-09-16] MEDS: Nicotine 21 MG PATCH.TD24 TD SCH (08:53)
[2021-09-16 12:14] LABS: Hematocrit 25.7 % (37.5-50.1); Hemoglobin 7.4 g/dL (12.9-16.9)
[2021-09-16] MEDS: Acetaminophen 325 MG TABLET PO PRN (15:31)
[2021-09-16] MEDS: levETIRAcetam 250 MG TABLET PO SCH (18:13)
[2021-09-16] MEDS: Melatonin 3 MG TABLET PO PRN (22:34)
[2021-09-17] MEDS: Insulin LISPRO 300 UNITS/3 ML VIAL SUBQ SCH ×7 (02:19→21:41)
[2021-09-17] MEDS: *HR* Heparin 5,000 UNIT/ML VIAL SQ SCH ×2 (04:58→16:45)
[2021-09-17] MEDS: levETIRAcetam 250 MG TABLET PO SCH ×2 (04:58→16:45)
[2021-09-17 05:27] LABS: Hematocrit 23.3 % (37.5-50.1); Red Cell Distribution Width 17.8 % (11.5-14.5)
[2021-09-17 05:28] LABS: Hemoglobin 6.4 g/dL (12.9-16.9); Mean Corpuscular HGB Conc 27.5 g/dL (31.6-35.5); Mean Corpuscular Hemoglobin 24.3 pg (28.0-33.3); Mean Corpuscular Volume 88.6 fL (83.0-100.0); Mean Platelet Volume 10.8 fL (9.4-12.4); Platelet Count 285 K/mcL (140-400); Red Blood Count 2.63 M/mcL (4.19-5.50); White Blood Count 12.6 K/mcL (4.3-11.1)
[2021-09-17 05:47] LABS: BUN/Creatinine Ratio 42 (6-26); Blood Urea Nitrogen 37 mg/dL (6-20); Calcium 7.7 mg/dL (8.6-10.3); Carbon Dioxide 34 mEq/L (23-29); Chloride 99 mEq/L (98-107); Glucose 521 mg/dL (70-105); Osmolality,Calculated 316 (280-300); Potassium 2.9 mEq/L (3.5-5.1); Sodium 137 mEq/L (136-145); eGFR For African Americans > 60 (> 60); eGFR For Non-African Americans > 60 (> 60)
[2021-09-17] MEDS: D5% in Water 1,000 ML IVC SCH (05:56)
[2021-09-17] MEDS: Ipratropium/Albuterol Neb 3 ML IH SCH ×2 (07:15→20:20)
[2021-09-17] MEDS: Acetylcysteine 10% 2 ML INHSOL IH SCH ×2 (07:16→20:20)
[2021-09-17] MEDS: carvediloL 6.25 MG TABLET PO SCH ×2 (09:57→16:44)
[2021-09-17] MEDS: Nicotine 21 MG PATCH.TD24 TD SCH (09:58)
[2021-09-17 10:42] LABS: Hematocrit 25.6 % (37.5-50.1); Hemoglobin 7.4 g/dL (12.9-16.9)
[2021-09-17 11:00] LABS: Magnesium 1.9 mg/dL (1.6-2.6); Phosphorous 2.4 mg/dL (2.7-4.5)
[2021-09-17] MEDS ORDERED: E-Z-PAQUE (BARIUM SULF) SUSP 1 BOTTLE PO ONE (13:05)
[2021-09-17] MEDS ORDERED: E-Z-HD (BARIUM SULF) SUSPENSION PO ONE (13:05)
[2021-09-18] MEDS: Insulin LISPRO 300 UNITS/3 ML VIAL SUBQ SCH ×6 (00:34→21:22)
[2021-09-18] MEDS: levETIRAcetam 250 MG TABLET PO SCH ×2 (04:31→16:51)
[2021-09-18] MEDS: *HR* Heparin 5,000 UNIT/ML VIAL SQ SCH (04:31)
[2021-09-18 04:51] LABS: Hemoglobin 6.7 g/dL (12.9-16.9); Red Cell Distribution Width 17.4 % (11.5-14.5)
[2021-09-18 04:52] LABS: Hematocrit 23.3 % (37.5-50.1); Mean Corpuscular HGB Conc 28.8 g/dL (31.6-35.5); Mean Corpuscular Hemoglobin 24.9 pg (28.0-33.3); Mean Corpuscular Volume 86.6 fL (83.0-100.0); Mean Platelet Volume 10.6 fL (9.4-12.4); Platelet Count 302 K/mcL (140-400); Red Blood Count 2.69 M/mcL (4.19-5.50)
[2021-09-18 05:55] LABS: BUN/Creatinine Ratio 41 (6-26); Blood Urea Nitrogen 38 mg/dL (6-20); Calcium 8.1 mg/dL (8.6-10.3); Carbon Dioxide 36 mEq/L (23-29); Chloride 105 mEq/L (98-107); Glucose 163 mg/dL (70-105); Osmolality,Calculated 315 (280-300); Potassium 3.2 mEq/L (3.5-5.1); Sodium 146 mEq/L (136-145); eGFR For African Americans > 60 (> 60); eGFR For Non-African Americans > 60 (> 60)
[2021-09-18 07:52] LABS: Hematocrit 23.9 % (37.5-50.1); Hemoglobin 6.9 g/dL (12.9-16.9)
[2021-09-18 08:12] LABS: Magnesium 1.6 mg/dL (1.6-2.6); Phosphorous 2.9 mg/dL (2.7-4.5)
[2021-09-18] MEDS: carvediloL 6.25 MG TABLET PO SCH ×2 (08:27→16:52)
[2021-09-18] MEDS: Aspirin 81 MG TAB.CHEW PO SCH (08:27)
[2021-09-18] MEDS: Nicotine 21 MG PATCH.TD24 TD SCH (08:27)
[2021-09-18] MEDS: Ipratropium/Albuterol Neb 3 ML IH SCH ×2 (10:09→22:36)
[2021-09-18] MEDS: Acetylcysteine 10% 2 ML INHSOL IH SCH (10:09)
[2021-09-18] MEDS: Melatonin 3 MG TABLET PO PRN (21:26)
[2021-09-19] MEDS: Insulin LISPRO 300 UNITS/3 ML VIAL SUBQ SCH ×6 (01:30→20:46)
[2021-09-19] MEDS: levETIRAcetam 250 MG TABLET PO SCH ×2 (06:29→18:16)
[2021-09-19] MEDS: Ipratropium/Albuterol Neb 3 ML IH SCH ×2 (09:39→22:40)
[2021-09-19] MEDS: carvediloL 6.25 MG TABLET PO SCH ×2 (09:58→18:16)
[2021-09-19] MEDS: Nicotine 21 MG PATCH.TD24 TD SCH (09:59)
[2021-09-19] MEDS: Melatonin 3 MG TABLET PO PRN (20:44)
[2021-09-20] MEDS: Insulin LISPRO 300 UNITS/3 ML VIAL SUBQ SCH ×3 (00:53→08:10)
[2021-09-20] MEDS: levETIRAcetam 250 MG TABLET PO SCH ×2 (05:42→16:32)
[2021-09-20] MEDS: carvediloL 6.25 MG TABLET PO SCH ×2 (07:34→16:32)
[2021-09-20] MEDS: Nicotine 21 MG PATCH.TD24 TD SCH (08:15)
[2021-09-20] MEDS: Ipratropium/Albuterol Neb 3 ML IH SCH ×2 (10:15→20:10)
[2021-09-20] MEDS ORDERED: Morphine Sulfate 2 MG/ML SYRINGE IVP PRN (10:33)
[2021-09-20 16:11] VITALS: BP 98/62; PULSE 105; TEMP 98.9; O2SAT 92
[2021-09-20] MEDS ORDERED: Insulin DETEMIR 100 UNIT/ML X5UNITS SUBQ SCH (21:00)
== END 2021-09-20 17:39 | disposition expired | DRG 291 ==
LOC: 3NENU 15:03 → EMEROOARM 15:03 → 3NENU 18:10 → SUATTDRO 08-24 12:43 → 3NENU 09-01 11:06 → 2NNU 09-04 09:03 → ICNU 09-04 15:57 → 2ANU 09-13 17:07
PROVIDERS: ADMIT Internal Medicine; ATTEND Family Medicine
PROC: ENDOAPI (2021-08-24 10:40)